=== PATIENT | female | born 1930 | race Caucasian/White ===

== ENCOUNTER 2016-06-24 15:24 | Outpatient (CLI) | payer MEDICARE, OTHER | END 2016-06-24 15:25 | disposition home or self-care (01) | DX: R05 Cough (principal) ==

== ENCOUNTER 2016-07-30 15:03 | Outpatient (CLI) | payer MEDICARE, OTHER | END 2016-07-30 15:04 | disposition home or self-care (01) | DX: R05 Cough (principal) ==

== ENCOUNTER 2016-12-10 16:16 | Outpatient (CLI) | payer MEDICARE, OTHER ==
[2016-12-10 18:27] LABS: BASOPHILS # (AUTO) 0.1 10^3/uL (0.0-0.1); BASOPHILS % (AUTO) 0.7 %; EOSINOPHILS # (AUTO) 0.3 10^3/uL (0.0-0.7); EOSINOPHILS % (AUTO) 4.1 %; HCT - HEMATOCRIT 46.1 % (37.0-47.0); HGB - HEMOGLOBIN 15.4 g/dL (12.0-16.0); LYMPHOCYTES # (AUTO) 2.2 10^3/uL (1.5-3.5); MEAN CORPUSCULAR HEMOGLOBIN 33.1 pg (27.0-31.0); MEAN CORPUSCULAR HGB CONC 33.5 g/dL (32.0-36.0); MEAN CORPUSCULAR VOLUME 98.9 fL (81.0-99.0); MEAN PLATELET VOLUME 10.7 fL (7.9-10.8); MONOCYTES # (AUTO) 0.7 10^3/uL (0.0-1.0); MONOCYTES % (AUTO) 8.8 %; NEUTROPHILS # (AUTO) 4.9 10^3/uL (1.5-6.6); NEUTROPHILS % (AUTO) 59.4 %; RED BLOOD COUNT 4.67 10^6/uL (4.20-5.40); RED CELL DISTRIBUTION WIDTH 13.6 % (12.0-15.0); UNCORRECTED WHITE BLOOD COUNT 8.2 x10^3/uL; WHITE BLOOD COUNT 8.2 x10^3/uL (4.8-10.8)
[2016-12-10 18:30] LABS: BILIRUBIN,URINE NEGATIVE (NEGATIVE)
[2016-12-10 18:31] LABS: ALBUMIN/GLOBULIN RATIO 1.1 (1.0-2.2); BILIRUBIN,TOTAL 0.5 mg/dL (0.2-1.0); CALCIUM 10.2 mg/dL (8.5-10.3); POTASSIUM 4.4 mmol/L (3.5-5.0); TOTAL PROTEIN 7.2 g/dL (6.7-8.2); UA w/ MICROSCOPIC CHARGE YES
[2016-12-10 18:39] LABS: UR CULTURE IF IND INDICATED; WBC,URINE 0-3 /HPF (0-5)
== END 2016-12-10 16:17 ==
LOC: LAB.R 16:16
PROVIDERS: ATTEND Physician Assistant Medical
DX: I48.2 Chronic atrial fibrillation (principal); R32 Unspecified urinary incontinence; R06.00 Dyspnea, unspecified
CPT/HCPCS: 80053; 81001; 81003; 83880; 85025; 87077; 87086

== ENCOUNTER 2016-12-10 16:42 | Outpatient (CLI) | payer MEDICARE, OTHER ==
--- NOTE | 2016-12-11 12:11 | XRAY Report ---
TWO-VIEW CHEST: 12/10/2016 CLINICAL INDICATION: Dyspnea. COMPARISON: 07/30/2016 FINDINGS: Frontal and lateral views of the chest demonstrate a normal cardiac silhouette. The lungs are hyperinflated. No new infiltrate, effusion, or pneumothorax is evident. IMPRESSION: HYPERINFLATION, COMPATIBLE WITH COPD. NO EVIDENCE OF ACUTE CARDIOPULMONARY DISEASE. JOB #: [id number] EXT JOB #:[id number]
== END 2016-12-10 16:43 | disposition home or self-care (01) ==
LOC: DI 16:42
PROVIDERS: ATTEND Physician Assistant Medical
DX: R06.00 Dyspnea, unspecified (principal); R32 Unspecified urinary incontinence; I48.2 Chronic atrial fibrillation
CPT/HCPCS: 71020; 80053; 81001; 81003; 83880; 85025; 87077; 87086

== ENCOUNTER 2016-12-29 13:45 | Outpatient (CLI) | payer MEDICARE, OTHER | END 2016-12-29 13:46 | disposition critical access hospital (66) | LOC: EMS 13:45 | PROVIDERS: ATTEND Surgery | DX: M25.552 Pain in left hip (principal); W18.30XA Fall on same level, unspecified, initial encounter; Y92.000 Kitchen of unspecified non-institutional (private) residence as the place of occurrence of the external cause | CPT/HCPCS: A0425; A0427 ==

== ENCOUNTER 2016-12-29 14:26 | Observation (INO) | payer MEDICARE, OTHER ==
[2016-12-29] MEDS ORDERED: SODIUM CHLORIDE 0.9% 1,000 ML IV ONE (14:39)
[2016-12-29 14:49] LABS: BASOPHILS # (AUTO) 0.1 10^3/uL (0.0-0.1); BASOPHILS % (AUTO) 1.2 %; EOSINOPHILS # (AUTO) 0.2 10^3/uL (0.0-0.7); HCT - HEMATOCRIT 48.3 % (37.0-47.0); HGB - HEMOGLOBIN 16.2 g/dL (12.0-16.0); LYMPHOCYTES # (AUTO) 2.2 10^3/uL (1.5-3.5); LYMPHOCYTES % (AUTO) 21.5 %; MEAN CORPUSCULAR HEMOGLOBIN 32.6 pg (27.0-31.0); MEAN CORPUSCULAR HGB CONC 33.5 g/dL (32.0-36.0); MEAN CORPUSCULAR VOLUME 97.3 fL (81.0-99.0); MEAN PLATELET VOLUME 9.4 fL (7.9-10.8); MONOCYTES # (AUTO) 0.6 10^3/uL (0.0-1.0); MONOCYTES % (AUTO) 5.6 %; NEUTROPHILS % (AUTO) 69.7 %; NUCLEATED RED BLOOD CELLS AUTO 0.1 /100WBC; RED BLOOD COUNT 4.96 10^6/uL (4.20-5.40); RED CELL DISTRIBUTION WIDTH 13.3 % (12.0-15.0)
[2016-12-29 15:05] LABS: CALCIUM 10.5 mg/dL (8.5-10.3); CREATININE 1.1 mg/dL (0.4-1.0); POTASSIUM 4.7 mmol/L (3.5-5.0)
[2016-12-29 15:07] LABS: INR 2.5 (0.8-1.2); PT - PROTHROMBIN TIME 28.5 secs (9.9-12.6)
--- NOTE | 2016-12-29 15:27 | CT Preliminary Report ---
Exam: CT Cervical Spine W/O IMPRESSION: 1. No evidence for acute fracture. Mild motion artifact limited. 2. Moderate to severe degenerative changes as above. [facility] SITE ID: [id number]
--- NOTE | 2016-12-29 15:34 | CT Preliminary Report ---
Exam: CT Head W/O IMPRESSION: Generalized age-related cortical atrophic changes without evidence of acute intracranial abnormality. [facility] SITE ID: [id number]
--- NOTE | 2016-12-29 15:36 | CT Report ---
EXAM: CT HEAD EXAM DATE: 12/29/2016 02:58 PM. CLINICAL HISTORY: Fall hit head. COMPARISON: Head CT 03/21/2016. TECHNIQUE: Multiaxial CT images were obtained from the foramen magnum to the vertex. IV contrast: Non e. Reformats: Coronal. In accordance with CT protocol optimization, one or more of the following dose reduction techniques w ere utilized for this exam: automated exposure control, adjustment of mA and/or KV based on patient s ize, or use of iterative reconstructive technique. FINDINGS: Parenchyma: No intraparenchymal hemorrhage. No evidence of mass, midline shift, or CT findings of acu te infarction. Garcia-white differentiation is distinct. Extraaxial Spaces: Normal for age. No subdural or epidural collections identified. Ventricles: The ventricles and cortical sulci are enlarged, consistent with age-related tissue loss. Sinuses: Imaged paranasal sinuses, orbits, and mastoids show no significant abnormality. Bones: No evidence of fracture or calvarial defect. Other: Diffuse chronic microangiopathic white matter changes are evident. IMPRESSION: Generalized age-related cortical atrophic changes without evidence of acute intracranial abnormality. [facility] Referring Provider Line: [phone] SITE ID: [id number]
--- NOTE | 2016-12-29 15:36 | CT Report ---
EXAM: CT CERVICAL SPINE WITHOUT CONTRAST DATE: 12/29/2016 02:56 PM HISTORY: Fall hit head. COMPARISONS: None. TECHNIQUE: Thin-section axial images were acquired of the cervical spine without contrast. Post-proce ssing: Coronal and sagittal reformats. Other: None. In accordance with CT protocol optimization, one or more of the following dose reduction techniques w ere utilized for this exam: automated exposure control, adjustment of mA and/or KV based on patient s ize, or use of iterative reconstructive technique. FINDINGS: Bones: Mild motion artifact limits the exam. No acute fracture is seen. Severe degenerative disk disease from C4-C7. Moderate C7-T1 and C3-C4 degenerative disk disease. Mini mal anterolisthesis of C2-C3, C3-C4 and C7-T1, most likely degenerative. Moderate to severe facet art hropathy, more severe at the upper and mid levels and on the left side. Breathing motion artifact. No acute findings seen in the lung apices. Marked atherosclerotic calcific ation of the thoracic aorta. No acute soft tissue findings seen small right thyroid hypodense nodule or cyst measuring 6 mm. Adjacent to this is a thickly calcified thyroid cyst or nodule measuring 7 mm . IMPRESSION: 1. No evidence for acute fracture. Mild motion artifact limited. 2. Moderate to severe degenerative changes as above. [facility] Referring Provider Line: [phone] SITE ID: [id number]
--- NOTE | 2016-12-29 15:38 | XRAY Preliminary Report ---
Exam: XR Pelvis 1 View IMPRESSION: 1. No evidence for acute fracture. 2. Mild bilateral hip degenerative joint disease. Moderate pubic symphysis sclerosis again noted, wit h erosive changes, could represent osteitis pubis. [facility] SITE ID: [id number]
--- NOTE | 2016-12-29 15:41 | XRAY Report ---
EXAM: PELVIS RADIOGRAPHY EXAM DATE: 12/29/2016 03:07 PM. CLINICAL HISTORY: Fall left hip pain. COMPARISON: Pelvis 03/07/2010. TECHNIQUE: 1 view. FINDINGS: Bones: No evidence for acute fracture. Joints: No dislocation. Bilateral hip degenerative joint disease. Moderate bilateral sacroiliac degen erative change with sclerosis again noted. Moderate pubic symphysis sclerosis again noted, with erosi ve changes, could represent osteitis pubis. Soft Tissues: Large body habitus. Left iliac artery calcification. IMPRESSION: 1. No evidence for acute fracture. 2. Mild bilateral hip degenerative joint disease. Moderate pubic symphysis sclerosis again noted, wit h erosive changes, could represent osteitis pubis. [facility] Referring Provider Line: [phone] SITE ID: [id number]
[2016-12-29] MEDS ORDERED: ACETAMINOPHEN 325 MG TABLET PO ONE (17:10)
--- NOTE | 2016-12-29 17:11 | ED Physician Documentation ---
History of Present Illness - Stated complaint Stated Complaint: GLF - Chief complaint Chief Complaint: Trauma Hd/Nk - Additonal information Additional information: hx from EMS and pt 86 y/o f on xarelto for a fib was gone for 2-3 hr came home to find pt supine on floor pt does not recall what happened - does not know if tripped and fell or had syncope has a MATA and hematoma to posterior scalp mild left neck pain no numbness or weakness no CP no AP L hip pain but that is chronic no fever cough NVD recently txed for UTI Review of Systems Constitutional: denies: Fever, Chills Ears: denies: Drainage/discharge Nose: denies: Epistaxis Cardiac: denies: Chest pain / pressure Respiratory: denies: Dyspnea, Cough GI: denies: Abdominal Pain, Nausea, Vomiting, Diarrhea : denies: Dysuria Skin: denies: Laceration (s) Musculoskeletal: reports: Neck pain Neurologic: reports: Syncope (not known for sure - pt does not recal event), Headache, Head injury Endocrine: reports: Easy bruising / bleeding Immunocompromised: denies: Immunocompromised PD PAST MEDICAL HISTORY - Past Medical History Past Medical History: Yes Cardiovascular: Hypertension, High cholesterol, Coronary artery disease, [place] Psych: Depression - Past Surgical History Past Surgical History: Yes Ortho: Knee replacement Cardiovascular: Coronary stent - Present Medications Home Medications: Ambulatory Orders Medication Instructions Recorded Confirmed Aspirin [Ecotrin] 81 mg PO DAILY 03/21/14 12/29/16 Atorvastatin [Lipitor] 40 mg PO QPM 03/21/14 12/29/16 Cholecalciferol (Vitamin D3) 2,000 units PO DAILY 03/21/14 12/29/16 [Vitamin D] Levothyroxine Sodium [Levoxyl] 100 mcg PO DAILY 03/21/14 12/29/16 Losartan [Cozaar] 50 mg PO BID 03/21/14 12/29/16 Potassium Chloride 20 meq PO DAILY 03/21/14 12/29/16 Citalopram [CeleXA] 20 mg PO DAILY 03/21/16 12/29/16 Rivaroxaban [Xarelto] 20 mg PO DAILY 03/21/16 12/29/16 Spironolactone 25 mg PO DAILY 12/29/16 12/29/16 - Allergies Allergies/Adverse Reactions: Allergies Allergy/AdvReac Type Severity Reaction Status Date / Time nortriptyline [Nortriptyline] Allergy Unknown Verified 12/29/16 14:58 sertraline HCl * Allergy Cramps Verified 12/29/16 14:58 [From Zoloft] tolterodine tartrate * Allergy Dizziness Verified 12/29/16 14:58 [From Detrol] - Social History Does the pt smoke?: No Smoking Status: Never smoker Does the pt drink ETOH?: No Does the pt have substance abuse?: No PD ED PE NORMAL - Vitals Vital signs reviewed: Yes - General General: Alert and oriented X 3 - HEENT HEENT: PERRL. No: Atraumatic (hematoma posterior left scalp) - Neck Neck: No bony TTP (but given mechanism and age will image) - Cardiac Cardiac: RRR - Respiratory Respiratory: No respiratory distress, Clear bilaterally - Abdomen Abdomen: Soft, Non tender - Derm Derm: Normal color - Extremities Extremities: Other (no deformity, able to rangle, mild TTP lateral L hip) - Neuro Neuro: Alert and oriented X 3, No motor deficit, No sensory deficit, Normal speech Results - Vitals Vitals: Vital Signs - 24 hr 12/29/16 14:26 Temperature 36.8 C Heart Rate 98 Respiratory 20 Rate Blood Pressure 174/118 H O2 Saturation 100 Oxygen O2 Source Room air - EKG (time done) 1514 Rate: Rate (enter#) (69) Rhythm: Atrial fibrillation [place]: Normal Ischemia: Normal ST segments - Labs Labs: Laboratory Tests 12/29/16 12/29/16 12/29/16 14:39 14:39 14:39 WBC 10.0 RBC 4.96 Hgb 16.2 H Hct 48.3 H MCV 97.3 MCH 32.6 H MCHC 33.5 RDW 13.3 Plt Count 233 MPV 9.4 Neut # 7.0 H Lymph # 2.2 [place] # 0.6 Eos # 0.2 Baso # 0.1 Absolute Nucleated RBC 0.01 Nucleated RBCs 0.1 PT 28.5 H INR 2.5 H Sodium 136 Potassium 4.7 Chloride 101 Carbon Dioxide 27 Anion Gap 8.0 BUN 20 Creatinine 1.1 H Estimated GFR (MDRD) 47 L Glucose 107 H Calcium 10.5 H Total Creatine Kinase 33 Troponin I Urine Color Urine Clarity Urine pH Ur Specific [place] Urine Protein Urine Glucose (UA) Urine Ketones Urine Occult Blood Urine Nitrite Urine Bilirubin Urine Urobilinogen Ur Leukocyte Esterase Urine RBC Urine WBC Ur Squamous Epith Cells Urine Bacteria Urine Mucus Ur Microscopic Review Urine Culture Comments 12/29/16 12/29/16 14:39 17:50 WBC RBC Hgb Hct MCV MCH MCHC RDW Plt Count MPV Neut # Lymph # [place] # Eos # Baso # Absolute Nucleated RBC Nucleated RBCs PT INR Sodium Potassium Chloride Carbon Dioxide Anion Gap BUN Creatinine Estimated GFR (MDRD) Glucose Calcium Total Creatine Kinase Troponin I < 0.04 Urine Color YELLOW Urine Clarity HAZY Urine pH 7.0 Ur Specific [place] 1.020 Urine Protein NEGATIVE Urine Glucose (UA) NEGATIVE Urine Ketones NEGATIVE Urine Occult Blood TRACE-INTA Urine Nitrite POSITIVE H Urine Bilirubin NEGATIVE Urine Urobilinogen 0.2 (NORMAL) Ur Leukocyte Esterase NEGATIVE Urine RBC 0-5 Urine WBC 0-3 Ur Squamous Epith Cells MANY Squamous H Urine Bacteria Many H Urine Mucus Few Strands Ur Microscopic Review INDICATED Urine Culture Comments NOT INDICATED - Rads (name of study) CTH Radiology: EMP read contemporaneously (no acute fx or bleed) CTCS Radiology: See rad report (no acute fx) pelvis Radiology: See rad report (no acute) PD MEDICAL DECISION MAKING - ED course ED course: fall with LOC of uncertain etiology and duration in an elderly pt on xarelto thankfully no major injuries since not sure if pt had syncope seems prudent to observe her on tele and perhaps consider echo, also as pt is on xarelto would be reasonable to do neuro checks overnight though initial CT is reassuring BP came down some s intervention Departure - Departure Disposition: ED Place in Observation Clinical Impression: Fall Qualifiers: Encounter type: initial encounter Qualified Code(s): W19.XXXA - Unspecified fall, initial encounter Head injury Qualifiers: Encounter type: initial encounter Qualified Code(s): S09.90XA - Unspecified injury of head, initial encounter Syncope Qualifiers: Syncope type: unspecified Qualified Code(s): R55 - Syncope and collapse
[2016-12-29] MEDS ORDERED: ACETAMINOPHEN 325 MG TABLET PO STA (17:17)
[2016-12-29 18:16] LABS: BILIRUBIN,URINE NEGATIVE (NEGATIVE)
[2016-12-29 18:20] LABS: UA w/ MICROSCOPIC CHARGE YES
[2016-12-29 18:32] LABS: UR CULTURE IF IND NOT INDICATED; WBC,URINE 0-3 /HPF (0-5)
[2016-12-29] MEDS ORDERED: ONDANSETRON 4 MG/2 ML VIAL IVP PRN (18:34)
[2016-12-29] MEDS ORDERED: SODIUM CHLORIDE FLUSH 0.9% 10 ML SYRINGE IVP PRN (18:34)
[2016-12-29] MEDS ORDERED: hydrALAZINE INJ 20 MG/ML VIAL IVP PRN (18:47)
[2016-12-29] MEDS: LOSARTAN 50 MG TABLET PO SCH (20:25)
[2016-12-29] MEDS ORDERED: ATORVASTATIN 40 MG TABLET PO SCH (21:00)
[2016-12-29] MEDS: ACETAMINOPHEN 325 MG TABLET PO PRN (21:51)
--- NOTE | 2016-12-29 21:51 | PROVIDER PROGRESS NOTE ---
Manager Bilingual Note - Manager Bilingual Note Manager Bilingual Note: I was called by ER provider about possible UTI in this patient however patient has no leukocytosis, no fever, UA has many squamous cells and 0-3 WBC therefore bacteria is likely contaminant. For now I will not start antibiotics and would wait to see results of the urine culture and defer any antibiotic treatment to the daytime hospitalist.
[2016-12-29] MEDS: SODIUM CHLORIDE FLUSH 0.9% 10 ML SYRINGE IVP SCH (21:52)
[2016-12-30] MEDS: SODIUM CHLORIDE FLUSH 0.9% 10 ML SYRINGE IVP SCH (06:20)
[2016-12-30] MEDS ORDERED: LEVOTHYROXINE 100 MCG TABLET PO SCH (07:00)
[2016-12-30 08:13] LABS: BASOPHILS # (AUTO) 0.1 10^3/uL (0.0-0.1); BASOPHILS % (AUTO) 0.6 %; EOSINOPHILS # (AUTO) 0.2 10^3/uL (0.0-0.7); EOSINOPHILS % (AUTO) 2.7 %; HCT - HEMATOCRIT 43.4 % (37.0-47.0); HGB - HEMOGLOBIN 14.7 g/dL (12.0-16.0); LYMPHOCYTES # (AUTO) 2.2 10^3/uL (1.5-3.5); LYMPHOCYTES % (AUTO) 23.7 %; MEAN CORPUSCULAR HEMOGLOBIN 32.6 pg (27.0-31.0); MEAN CORPUSCULAR HGB CONC 33.9 g/dL (32.0-36.0); MEAN CORPUSCULAR VOLUME 96.3 fL (81.0-99.0); MEAN PLATELET VOLUME 9.3 fL (7.9-10.8); MONOCYTES # (AUTO) 0.7 10^3/uL (0.0-1.0); MONOCYTES % (AUTO) 7.5 %; NEUTROPHILS % (AUTO) 65.5 %; NUCLEATED RED BLOOD CELLS AUTO 0.1 /100WBC; RED BLOOD COUNT 4.51 10^6/uL (4.20-5.40); RED CELL DISTRIBUTION WIDTH 12.9 % (12.0-15.0); UNCORRECTED WHITE BLOOD COUNT 9.1 x10^3/uL; WHITE BLOOD COUNT 9.1 x10^3/uL (4.8-10.8)
[2016-12-30 08:23] LABS: CALCIUM 10.1 mg/dL (8.5-10.3); TOTAL PROTEIN 6.5 g/dL (6.7-8.2)
[2016-12-30] MEDS ORDERED: FAMOTIDINE 20 MG TABLET PO SCH (09:00)
[2016-12-30] MEDS ORDERED: ASPIRIN EC 81 MG TABLET PO SCH (09:00)
[2016-12-30] MEDS ORDERED: POLYETHYLENE GLYCOL 3350 17 GM PACKET PO SCH (09:00)
[2016-12-30] MEDS ORDERED: SPIRONOLACTONE 25 MG TABLET PO SCH (09:00)
[2016-12-30] MEDS ORDERED: RIVAROXABAN 10 MG TABLET PO SCH (09:00)
[2016-12-30] MEDS ORDERED: CHOLECALCIFEROL 1,000 UNIT TABLET PO SCH (09:00)
[2016-12-30] MEDS: LOSARTAN 50 MG TABLET PO SCH (09:06)
--- NOTE | 2016-12-30 12:18 | HISTORY & PHYSICAL EXAMINATION ---
Chief Complaint - Chief Complaint Chief Complaint: syncope History of Present Illness - Admitted From Admitted From:: emergence department - History Obtained From History obtained from: patient - History of Present Illness HPI Comment/Other: This is 86-year-old Cauc[place] female with Past Medical History of hypertension, hyperlipidemia, coronary artery disease, [place], Afib with Xarelto, Depression, who present emergence department for evaluation of one episode of syncope. Patient report yesterday when she prepared her breakfast in the ketch, she fell at the ketch room floor when she tried to stand up. She did not bring her lifeline with her. so she stayed at the ketch floor at least couple of hours, because she can not move, and she can not call her . When her came back and found her in the floor, then immediately called 911. EMS sent patient to emergence department for further evaluation. She report she did not loss of her conscious when she had fall. Patient report she had headache after fall. But she feels much better for headache after she was given Tylenol at emergence department. Patient denies other pain or injury after fall. Patient denies chest pain, short of air, fever, chill, abdominal pain, nausea, vomiting, diarrhea, vision changing, urinary issue, black stool or GI bleeding, focal neurological deficits CT of head, cervical spine, Xray of pelvis reveals no acute finding. lab test is unremarkable. UA reveals many squamous cells, and patient denies any urinary symptoms. Patient is admitted for observation, further evaluation of syncope and neurological observation after patient had fall and with Xarelto medication taken at home. Review of Systems - Constitutional Constitutional: denies: Fatigue, Fever, Chills, Malaise, Weakness, Poor appetite , Diaphoresis, Night sweats, Weight gain, Weight loss - Eyes Eyes: denies: Pain, Irritation, Amaurosis, Blurred vision, Spots in vision, Field loss, Vision loss, Dipolpia - Ears, Nose & Throat Ears, Nose & Throat: denies: Ear pain, Hearing loss, Hearing aids, Tinnitus, Vertigo, Nosebleeds, Nasal congestion, Postnasal drainage, Sore throat, Hoarseness, Mouth lesions, Bleeding gums - Cardiovascular Cariovascular: reports: Syncope. denies: Irregular heart rate, Palpitations, Chest pain, Edema, Lightheadedness, Exertional dyspnea, Decr. exercise tolerance , Orthopnea - Respiratory Respiratory: denies: Cough, Sputum production, Wheezing, Snoring, Hemoptysis, Orthopnea, SOB at rest, SOB with exertion, Apnea, Stridor, Pleuritic pain - Gastrointestinal Gastrointestinal: denies: Abdominal pain, Abdominal distention, Constipation, Diarrhea, Change in bowel habits, Rectal bleeding, Black stools, Bloody stools, Nausea, Vomiting, Bile emesis, Coffee grounds emesis, Reflux/heartburn, Bloating , Poor appetite - Genitourinary Genitourinary: denies: Dysuria, Frequency, Urgency, Hematuria, Incontinence, Flank pain - Musculoskeletal Musculoskeletal: denies: Muscle pain, Back pain, Muscle aches, Stiffness, Limited range of motion, Muscle weakness, Gout, Joint pain, Joint swelling - Integumentary Integumentary: denies: Rash, Lesions, Lumps, Pigment changes - Neurological Neurological: denies: General weakness, Focal weakness, Headache, Dizziness, Numbness, Memory problems, Abnormal gait, Seizures, Incoordination, Slurred speech - Psychiatric Psychiatric: denies: Depression, Anxiety, Suicidal, Delusions, Hallucinations, Homicidal - Endocrine Endocrine: denies: Polyuria, Polydypsia, Polyphagia - Hematologic/Lymphatic Hematologic/Lymphatic: denies: Bruising, Petechiae, Blood clots, Lymphadenopathy , Recurrent infections History - Past Medical History Cardiovascular: reports: Hypertension, High cholesterol, Coronary artery disease , [place] Psych: reports: Depression MRSA Hx?: No - Past Surgical History Ortho: reports: Knee replacement Cardiovascular: reports: Coronary stent Meds/Allgy - Home Medications Home Medications: Ambulatory Orders Medication Instructions Recorded Confirmed Aspirin [Ecotrin] 81 mg PO DAILY 03/21/14 12/29/16 Atorvastatin [Lipitor] 40 mg PO QPM 03/21/14 12/29/16 Cholecalciferol (Vitamin D3) 2,000 units PO DAILY 03/21/14 12/29/16 [Vitamin D3] Levothyroxine Sodium [Levoxyl] 100 mcg PO DAILY 03/21/14 12/29/16 Losartan [Cozaar] 50 mg PO BID 03/21/14 12/29/16 Potassium Chloride 20 meq PO DAILY 03/21/14 12/29/16 Citalopram [CeleXA] 20 mg PO DAILY 03/21/16 12/29/16 Rivaroxaban [Xarelto] 20 mg PO DAILY 03/21/16 12/29/16 Spironolactone 25 mg PO DAILY 12/29/16 12/29/16 - Allergies Allergies/Adverse Reactions: Allergies Allergy/AdvReac Type Severity Reaction Status Date / Time nortriptyline [Nortriptyline] Allergy Unknown Verified 12/29/16 14:58 sertraline HCl * Allergy Cramps Verified 12/29/16 14:58 [From Zoloft] tolterodine tartrate * Allergy Dizziness Verified 12/29/16 14:58 [From Detrol] Exam - Vital Signs Vital Signs: Vital Signs x48h Temp Pulse Resp BP Pulse Ox 12/30/16 08:00 153/89 H 12/30/16 07:56 36.7 C 66 18 170/86 H 95 12/30/16 06:07 61 163/69 H 12/30/16 05:38 36.8 C 63 18 172/89 H 95 - Physical Exam General Appearance: positive: No acute distress, Alert Eyes Bilateral: positive: Normal inspection, PERRL, EOMI. negative: No lid inflammation ENT: positive: ENT inspection nml, Pharynx nml, No signs of dehydration. negative: Purulent nasal drainage, Pharyngeal erythema Neck: positive: Nml inspection, Thyroid nml, Trachea midline. negative: Lymphadenopathy (R), Lymphadenopathy (L), Stiff neck, Swelling/bruising Respiratory: positive: Chest non-tender, No respiratory distress, Breath sounds nml. negative: Wheezes, Rales, Rhonchi Cardiovascular: positive: Regular rate & rhythm, No murmur, No gallop. negative : Tachycardia, Bradycardia, Systolic murmur, Diastolic murmur Peripheral Pulses: positive: 2+ Abdomen: positive: Non-tender, Nml bowel sounds, No distention. negative: Tenderness, Guarding, Rebound Back: positive: Nml inspection. negative: CVA tenderness (R), CVA tenderness (L ) Skin: positive: Color nml, Warm, Dry. negative: Diaphoresis, Pallor, Decubitus Extremities: positive: Non-tender, Full ROM, Nml appearance, No pedal edema. negative: Pedal edema, Calf tenderness Neurologic/Psychiatric: positive: Oriented x3, CN's nml (2-12), Motor nml, Sensation nml, Mood/affect nml. negative: Disoriented to person, Disoriented to place, Disoriented to time, Weakness, Sensory loss, Facial droop, Slurred/ abnml speech, Depressed mood/affect Conclusion/Plan - Problem List (1) Syncope Conclusion/Plan: order ECHO and orthostatic BP assessment on tele monitor, EKG PRN check CPK for fall from syncope Qualifiers: Syncope type: unspecified Qualified Code(s): R55 - Syncope and collapse (2) Atrial fibrillation Conclusion/Plan: pt appears with permanent afit with Xarelto. PT/INR 2.5 in the therapeutic arrange. stable, with reconciliation of home meds Qualifiers: Atrial fibrillation type: chronic Qualified Code(s): I48.2 - Chronic atrial fibrillation (3) Fall Conclusion/Plan: CT of head and cervical spine, Xray of pelvis, reveals acute findings. Pt did not have other complaint, or pain, or injury. Closely neurological check, because pt had fall and take Xarelto. Qualifiers: Encounter type: initial encounter Qualified Code(s): W19.XXXA - Unspecified fall, initial encounter (4) Hypertension Conclusion/Plan: reconciliation of home BP medications, add hydralazine PRN, closely monitor (5) Hyperlipemia Conclusion/Plan: reconciliation of Lipitor, home meds. - Lab Results Fish Bones: 12/30/16 08:05 12/30/16 08:05 Issues/Core Measures - Anticipated LOS Anticipated Stay Length: Less than 2 midnights - Issues Hospital Issues and Management Plan: Since pt had Xarelto with INR 2.5, so DVT prophylaxis, only add SCD - DVT/VTE - Prophylaxis VTE/DVT Device ordered at admit?: Yes
--- NOTE | 2016-12-30 12:52 | Discharge Plan ---
Discharge Plan Disposition: 01 Home, Self Care Condition: Stable Diet: Cardiac Activity Restrictions: Activity as Tolerated Shower Restrictions: No Weight Bearing: Full Weight Additional Instructions or Follow Up instructions: May see PCP and Sports Medicine Trainer in one week. Follow-Up Care: [facility] - Cardiac No Smoking: If you smoke, Please STOP! Call for help.
[2016-12-30 13:05] VITALS: BP 169/78
[2016-12-30] MEDS: ACETAMINOPHEN 325 MG TABLET PO PRN (14:20)
--- NOTE | 2017-01-01 07:36 | DISCHARGE SUMMARY ---
DATE OF ADMISSION: 12/29/2016 DATE OF DISCHARGE: 12/30/2016 DISCHARGE DIAGNOSES 1. Syncope. 2. Atrial fibrillation. 3. Hypertension. 4. Hypothyroidism. CHIEF COMPLAINT: Syncope without loss of consciousness. HOSPITAL COURSE: The patient reports when she went to the kitchen to prepare breakfast, she fell to the ground but did not have loss of consciousness. She could not reach the telephone and she stayed on the kitchen floor for at least 2 hours. When her came back, he found her on the floor and called 911. In the emergency room, the patient had CT of the head and neck. There was no fracture and no injury. The patient also reported some headache, but after Tylenol the headache is reduced. No other injury. CT of the head showed no fracture and no intracranial deformity. The patient was admitted for evaluation. The patient did an echo and orthostatic blood pressure management. The echo showed the patient basically had normal left ventricular function and EF was in the normal range. It did show atrial fibrillation. Orthostatics had 20 blood pressure difference from standing and sitting. It was explained to the patient the role of orthostatics could be cause of the fainting and fall, and advised the patient to stand slowly. The patient reports she laid on the floor for at least 2 hours. Consulted social work and they found out the patient forgot to bring her Lifeline with her. She has a Lifeline and she has a phone, but she did not bring them with her. Advised the patient to bring the Lifeline and telephone at any time with her. The patient was admitted December 29 and discharged the next day on December 30. Patient did have image study with echo and it showed left ventricle in normal range of function. EKG showed no obvious acute findings with dysrhythmia, but the patient still had atrial fibrillation. physical examination: General Appearance: positive: No acute distress, Alert Eyes Bilateral: positive: Normal inspection, PERRL, EOMI. negative: No lid inflammation ENT: positive: ENT inspection nml, Pharynx nml, No signs of dehydration. negative: Purulent nasal drainage, Pharyngeal erythema Neck: positive: Nml inspection, Thyroid nml, Trachea midline. negative: Lymphadenopathy (R), Lymphadenopathy (L), Stiff neck, Swelling/bruising Respiratory: positive: Chest non-tender, No respiratory distress, Breath sounds nml. negative: Wheezes, Rales, Rhonchi Cardiovascular: positive: Regular rate & rhythm, No murmur, No gallop. negative : Tachycardia, Bradycardia, Systolic murmur, Diastolic murmur Peripheral Pulses: positive: 2+ Abdomen: positive: Non-tender, Nml bowel sounds, No distention. negative: Tenderness, Guarding, Rebound Back: positive: Nml inspection. negative: CVA tenderness (R), CVA tenderness (L ) Skin: positive: Color nml, Warm, Dry. negative: Diaphoresis, Pallor, Decubitus Extremities: positive: Non-tender, Full ROM, Nml appearance, No pedal edema. negative: Pedal edema, Calf tenderness Neurologic/Psychiatric: positive: Oriented x3, CN's nml (2-12), Motor nml, Sensation nml, Mood/affect nml. negative: Disoriented to person, Disoriented to place, Disoriented to time, Weakness, Sensory loss, Facial droop, Slurred/ abnml speech, Depressed mood/affect DISCHARGE MEDICATIONS: No change. The patient is on: 1. Xarelto 20 mg p.o. daily for atrial fibrillation. 2. Spironolactone 25 mg p.o. daily. 3. Potassium 20 mEq daily. 4. Losartan 50 mg p.o. b.i.d. 5. Levothyroxine 100 mcg p.o. daily. 6. Celexa 20 mg p.o. daily. 7. Vitamin D3, 2000 units p.o. daily. 8. Lipitor 40 mg p.o. q.p.m. 9. Aspirin 81 mg p.o. daily. DISCHARGE INSTRUCTIONS: Advised the patient to see PCP and electro mechanical technologist within 1 week. Advised the patient to wear [employer] all the time. Discharge time was about 40 minutes. JOB #: [id number] EXT JOB #:[id number] [facility]
== END 2016-12-30 15:25 | disposition home or self-care (01) ==
LOC: EDUNIT# → ED 14:26 → OBS 18:34
PROVIDERS: ADMIT Nurse Practitioner Gerontology; ATTEND Nurse Practitioner Gerontology
DX: R55 Syncope and collapse (principal); I48.91 Unspecified atrial fibrillation; E03.9 Hypothyroidism, unspecified; I25.10 Atherosclerotic heart disease of native coronary artery without angina pectoris; I10 Essential (primary) hypertension; E78.5 Hyperlipidemia, unspecified; F32.9 Major depressive disorder, single episode, unspecified; I25.2 Old myocardial infarction; Z95.5 Presence of coronary angioplasty implant and graft; Z96.659 Presence of unspecified artificial knee joint; Z79.82 Long term (current) use of aspirin; Z79.02 Long term (current) use of antithrombotics/antiplatelets; Z91.81 History of falling
CPT/HCPCS: 36415; 70450; 72125; 72170; 80048; 80053; 81001; 82550; 84484; 85025; 85610; 93005; 93306; 96360; 99284; 99285; A9270; G0378; 81003; 87086

== ENCOUNTER 2017-05-09 13:23 | Outpatient (CLI) | payer MEDICARE, OTHER | END 2017-05-09 13:24 | disposition EMS.NT | LOC: EMS 13:23 | PROVIDERS: ATTEND Surgery | DX: T14.90XA Injury, unspecified, initial encounter (principal); W01.0XXA Fall on same level from slipping, tripping and stumbling without subsequent striking against object, initial encounter; Y92.009 Unspecified place in unspecified non-institutional (private) residence as the place of occurrence of the external cause ==

== ENCOUNTER 2017-05-10 11:44 | Emergency (ER) | payer MEDICARE, OTHER ==
--- NOTE | 2017-05-10 12:37 | XRAY Preliminary Report ---
Exam: XR CHEST 2 VIEW PA/LAT IMPRESSION: 1. Cardiomegaly. No vascular congestion. 2. Bronchial thickening which can be seen with bronchitis or reactive airways disease. No focal conso lidation. [facility] SITE ID: [id number]
--- NOTE | 2017-05-10 12:39 | XRAY Report ---
EXAM: CHEST RADIOGRAPHY EXAM DATE: 05/10/2017 12:26 PM. CLINICAL HISTORY: Congestion/cough. COMPARISON: 12/10/2016. 07/30/2016. TECHNIQUE: 2 views. FINDINGS: Lungs/Pleura: Mild bronchial thickening. Interstitium is prominent. Linear scarring in the left lung base. No vascular congestion or pneumothorax. Mediastinum: Cardiomegaly. Aortic tortuosity. Aortic atherosclerosis. Other: Degenerative changes of the thoracic spine. Surgical clips in the left axilla are again seen. IMPRESSION: 1. Cardiomegaly. No vascular congestion. 2. Bronchial thickening which can be seen with bronchitis or reactive airways disease. No focal conso lidation. [facility] Referring Provider Line: [phone] SITE ID: [id number]
[2017-05-10] MEDS ORDERED: IPRATROPIUM/ALBUTEROL 3 ML NEB INH STA (14:05)
[2017-05-10] MEDS ORDERED: IPRATROPIUM/ALBUTEROL 3 ML NEB INH ONE (14:17)
--- NOTE | 2017-05-10 14:39 | ED Physician Documentation ---
History of Present Illness - Stated complaint Stated Complaint: COUGH/CONGESTION - Chief complaint Chief Complaint: Resp - History obtained from History obtained from: Patient (pt is here for a cough and congestion and wheezing for the past couple days, no fevers, some shortness of breath, no travel. Has had a productive cough, no rashes, no chest pain. has not had a PNA or flu imm this year.) Review of Systems Constitutional: denies: Fever, Chills Nose: denies: Rhinorrhea / runny nose, Foreign Body Throat: denies: Dental pain / toothache Cardiac: denies: Chest pain / pressure Respiratory: reports: Dyspnea, Cough, Wheezing GI: denies: Abdominal Pain, Nausea, Vomiting, Constipation, Diarrhea : denies: Dysuria, Frequency Skin: denies: Rash, Lesions Musculoskeletal: denies: Extremity swelling Neurologic: denies: Generalized weakness, Headache, LOC PD PAST MEDICAL HISTORY - Past Medical History Cardiovascular: Hypertension, High cholesterol, Coronary artery disease, [place] Psych: Depression - Past Surgical History Past Surgical History: Yes Ortho: Knee replacement Cardiovascular: Coronary stent - Present Medications Home Medications: Ambulatory Orders Medication Instructions Recorded Confirmed Aspirin [Ecotrin] 81 mg PO DAILY 03/21/14 05/10/17 Atorvastatin [Lipitor] 40 mg PO QPM 03/21/14 05/10/17 Cholecalciferol (Vitamin D3) 2,000 units PO DAILY 03/21/14 05/10/17 [Vitamin D3] Levothyroxine Sodium [Levoxyl] 100 mcg PO DAILY 03/21/14 05/10/17 Losartan [Cozaar] 50 mg PO BID 03/21/14 05/10/17 Potassium Chloride 20 meq PO DAILY 03/21/14 05/10/17 Citalopram [CeleXA] 20 mg PO DAILY 03/21/16 05/10/17 Rivaroxaban [Xarelto] 20 mg PO DAILY 03/21/16 05/10/17 Spironolactone 25 mg PO DAILY 12/29/16 05/10/17 Albuterol Sulf [Ventolin Hfa 2 puffs INH Q4HR PRN #1 inhaler 05/10/17 Inhaler] Azithromycin 250 mg PO DAILY #6 tablet 05/10/17 predniSONE [Prednisone] 40 mg PO DAILY #10 tablet 05/10/17 - Allergies Allergies/Adverse Reactions: Allergies Allergy/AdvReac Type Severity Reaction Status Date / Time nortriptyline [Nortriptyline] Allergy Unknown Verified 12/29/16 14:58 sertraline HCl * Allergy Cramps Verified 12/29/16 14:58 [From Zoloft] tolterodine tartrate * Allergy Dizziness Verified 12/29/16 14:58 [From Detrol] - Social History Does the pt smoke?: No Smoking Status: Never smoker Does the pt drink ETOH?: No Does the pt have substance abuse?: No - Immunizations Immunizations are current?: No - POLST Patient has POLST: Yes PD ED PE NORMAL - Vitals Vital signs reviewed: Yes - General General: Alert and oriented X 3, No acute distress, Well developed/nourished - Cardiac Cardiac: RRR, No murmur - Respiratory Respiratory: No respiratory distress. No: Clear bilaterally (bilateral wheezing ) - Abdomen Abdomen: No: Soft - Derm Derm: Normal color, No rash - Neuro Neuro: Alert and oriented X 3 Eye Opening: Spontaneous Motor: Obeys Commands Verbal: Oriented GCS Score: 15 - Psych Psych: Normal mood, Normal affect Results - Vitals Vitals: Vital Signs - 24 hr 05/10/17 05/10/17 05/10/17 12:03 13:34 14:19 Temperature 36.3 C L Heart Rate 68 57 L 68 Respiratory 18 18 Rate Blood Pressure 139/88 H O2 Saturation 95 96 Oxygen O2 Source Room air - Rads (name of study) CXR Radiology: Final report received (2. Bronchial thickening which can be seen with bronchitis or reactive airways disease) PD MEDICAL DECISION MAKING - ED course Complexity details: d/w patient ED course: pt w/o respiratory distress. has similar sx, pt does have a productive cough but no fevers. received a neb in the ER with improvement in symptoms, after discussion with her will start a course of ABX. will send home with steroids and albuterol also. she expressed understanding. Pt not septic. Departure - Departure Disposition: Home, Self Care Clinical Impression: Bronchitis Condition: Good Instructions: Bronchitis Acute Dc Follow-Up: Yamil Valenzuela MD [Primary Care Provider] - Prescriptions: Albuterol Sulf [Ventolin Hfa Inhaler] 2 puffs INH Q4HR PRN #1 inhaler PRN Reason: Shortness Of Air/Wheezing Azithromycin 250 mg PO DAILY #6 tablet predniSONE [Prednisone] 40 mg PO DAILY #10 tablet Comments: Take all of your medications like we discussed. Follow up with your primary care provider in the next 7-10 days. Return to the ER for any new or worsening symptoms, fevers, problems breathing, chest pain or any other concerning symptoms.
[2017-05-10 14:45] VITALS: BP 132/59
== END 2017-05-10 14:53 | disposition home or self-care (01) ==
LOC: ED 11:44
DX: J40 Bronchitis, not specified as acute or chronic (principal); I10 Essential (primary) hypertension; E78.00 Pure hypercholesterolemia, unspecified; I25.10 Atherosclerotic heart disease of native coronary artery without angina pectoris; I25.2 Old myocardial infarction; Z79.82 Long term (current) use of aspirin
CPT/HCPCS: 71020; 99283; J7620

== ENCOUNTER 2017-07-06 15:33 | Outpatient (CLI) | payer MEDICARE, OTHER | END 2017-07-06 15:34 | disposition critical access hospital (66) | LOC: EMS 15:33 | PROVIDERS: ATTEND Surgery | DX: R25.1 Tremor, unspecified (principal); W01.0XXA Fall on same level from slipping, tripping and stumbling without subsequent striking against object, initial encounter; Y92.002 Bathroom of unspecified non-institutional (private) residence as the place of occurrence of the external cause | CPT/HCPCS: A0425; A0429 ==

== ENCOUNTER 2017-07-06 16:10 | Inpatient (IN) | payer MEDICARE, OTHER ==
[2017-07-06] MEDS ORDERED: BENZOCAINE/MENTHOL LOZENGE MM STA (17:34)
[2017-07-06] MEDS ORDERED: ALBUTEROL NEB 2.5 MG/3 ML INH STA ×2 (17:47→19:47)
--- NOTE | 2017-07-06 17:50 | ED Physician Documentation ---
History of Present Illness - Stated complaint Stated Complaint: GLF - Chief complaint Chief Complaint: Trauma Hd/Nk - Additonal information Additional information: hx from pt and family 87 y/o f hx HTN HLD CAD sick for a week cough soa body aches fatigue saw PMD yesterday and got rx for robitussin AC which caused severe tremors, also for tessalon jalen was worried the codeine would cause constipation so he gave her a stool softener and now she is incontinent of stool too she is weak and the soa and cough are worse triage BP OK but when i entered the room her BP was 94 do not see CXR results of influenza swabs from clinic yesterday and now clinic is closed Review of Systems Constitutional: reports: Chills, Myalgias, Fatigue. denies: Fever Ears: denies: Ear pain Throat: denies: Sore throat Respiratory: reports: Dyspnea, Cough GI: reports: Diarrhea Neurologic: reports: Generalized weakness Endocrine: reports: Easy bruising / bleeding (on xarelto) Immunocompromised: denies: Immunocompromised PD PAST MEDICAL HISTORY - Past Medical History Past Medical History: Yes Cardiovascular: Hypertension, High cholesterol, Coronary artery disease, [place] Psych: Depression - Past Surgical History Past Surgical History: Yes Ortho: Knee replacement Cardiovascular: Coronary stent - Present Medications Home Medications: Ambulatory Orders Medication Instructions Recorded Confirmed Aspirin [Ecotrin] 81 mg PO DAILY 03/21/14 05/10/17 Atorvastatin [Lipitor] 40 mg PO QPM 03/21/14 05/10/17 Cholecalciferol (Vitamin D3) 2,000 units PO DAILY 03/21/14 05/10/17 [Vitamin D3] Levothyroxine Sodium [Levoxyl] 100 mcg PO DAILY 03/21/14 05/10/17 Losartan [Cozaar] 50 mg PO BID 03/21/14 05/10/17 Potassium Chloride 20 meq PO DAILY 03/21/14 05/10/17 Citalopram [CeleXA] 20 mg PO DAILY 03/21/16 05/10/17 Rivaroxaban [Xarelto] 20 mg PO DAILY 03/21/16 05/10/17 Spironolactone 25 mg PO DAILY 12/29/16 05/10/17 Albuterol Sulf [Ventolin Hfa 2 puffs INH Q4HR PRN #1 inhaler 05/10/17 Inhaler] Azithromycin 250 mg PO DAILY #6 tablet 05/10/17 predniSONE [Prednisone] 40 mg PO DAILY #10 tablet 05/10/17 - Allergies Allergies/Adverse Reactions: Allergies Allergy/AdvReac Type Severity Reaction Status Date / Time nortriptyline [Nortriptyline] Allergy Unknown Verified 12/29/16 14:58 sertraline HCl * Allergy Cramps Verified 12/29/16 14:58 [From Zoloft] tolterodine tartrate * Allergy Dizziness Verified 12/29/16 14:58 [From Detrol] - Social History Does the pt smoke?: No Smoking Status: Never smoker Does the pt drink ETOH?: No Does the pt have substance abuse?: No - Immunizations Immunizations are current?: No - POLST Patient has POLST: Yes PD ED PE NORMAL - Vitals Vital signs reviewed: Yes - General General: Other (awake and alert to answer questions, appears weak and exhausted) - HEENT HEENT: PERRL - Neck Neck: Supple, no meningeal sign - Cardiac Cardiac: RRR - Respiratory Respiratory: Other (wheezing and ronchi bilaterally) - Abdomen Abdomen: Soft, Non tender - Derm Derm: Normal color - Extremities Extremities: Other (mod symm edema) - Neuro Neuro: Alert and oriented X 3 Results - Vitals Vitals: Vital Signs - 24 hr 07/06/17 07/06/17 07/06/17 16:14 16:22 18:17 Temperature 36.8 C 36.8 C Heart Rate 86 86 80 Respiratory 22 22 20 Rate Blood Pressure 141/76 H 141/76 H 156/94 H O2 Saturation 94 94 95 Oxygen O2 Source Room air - Labs Labs: Laboratory Tests 07/06/17 07/06/17 07/06/17 17:56 17:56 17:56 WBC 8.1 RBC 4.66 Hgb 15.2 Hct 45.4 MCV 97.5 MCH 32.5 H MCHC 33.4 RDW 13.6 Plt Count 148 MPV 10.1 Neut # 5.8 Lymph # 1.1 L [place] # 1.2 H Eos # 0.0 Baso # 0.0 Absolute Nucleated RBC 0.00 Nucleated RBC % 0.0 Sodium 136 Potassium 4.3 Chloride 102 Carbon Dioxide 26 Anion Gap 8.0 BUN 21 H Creatinine 1.3 H Estimated GFR (MDRD) 39 L Glucose 114 H Lactic Acid 1.3 Calcium 9.8 Influenza A (Rapid) Influenza B (Rapid) Influenza Types A,B Ag 07/06/17 18:11 WBC RBC Hgb Hct MCV MCH MCHC RDW Plt Count MPV Neut # Lymph # [place] # Eos # Baso # Absolute Nucleated RBC Nucleated RBC % Sodium Potassium Chloride Carbon Dioxide Anion Gap BUN Creatinine Estimated GFR (MDRD) Glucose Lactic Acid Calcium Influenza A (Rapid) Negative Influenza B (Rapid) POSITIVE H Influenza Types A,B Ag + H - Rads (name of study) CXR Radiology: See rad report (no infiltrate, bronchiole thickening) PD MEDICAL DECISION MAKING - ED course ED course: pt too weak to ambulate and transfer independently briefly hypotensive but otherwise faintly nl VS very wheezy given neb no pna on CXR gave tamiflu will admit suggested family member who have been caring for pt discss prophylactic tamiflu with their PMDs - one has cancer other is immunosupressed Departure - Departure Disposition: ED Place in Observation Clinical Impression: Influenza B, Weakness, Wheezing Condition: Fair
[2017-07-06 18:05] LABS: BASOPHILS % (AUTO) 0.5 %; EOSINOPHILS % (AUTO) 0.1 %; HGB - HEMOGLOBIN 15.2 g/dL (12.0-16.0); LYMPHOCYTES # (AUTO) 1.1 10^3/uL (1.5-3.5); LYMPHOCYTES % (AUTO) 13.1 %; MEAN CORPUSCULAR HEMOGLOBIN 32.5 pg (27.0-31.0); MEAN CORPUSCULAR HGB CONC 33.4 g/dL (32.0-36.0); MEAN CORPUSCULAR VOLUME 97.5 fL (81.0-99.0); MEAN PLATELET VOLUME 10.1 fL (7.9-10.8); MONOCYTES # (AUTO) 1.2 10^3/uL (0.0-1.0); MONOCYTES % (AUTO) 14.9 %; NEUTROPHILS # (AUTO) 5.8 10^3/uL (1.5-6.6); NEUTROPHILS % (AUTO) 71.4 %; PLT - PLATELET COUNT 148 10^3/uL (130-450); RED BLOOD COUNT 4.66 10^6/uL (4.20-5.40); RED CELL DISTRIBUTION WIDTH 13.6 % (12.0-15.0); WHITE BLOOD COUNT 8.1 x10^3/uL (4.8-10.8)
[2017-07-06 18:13] LABS: CALCIUM 9.8 mg/dL (8.5-10.3); CREATININE 1.3 mg/dL (0.4-1.0)
--- NOTE | 2017-07-06 19:12 | XRAY Preliminary Report ---
Exam: XR CHEST 2 VIEW X-RAY IMPRESSION: 1. Cardiac enlargement unchanged. 2. No acute pulmonary process. 3. Bronchoscopic wall thickening. Findings are nonspecific concerning for bronchitis or reactive air was disease. [facility] SITE ID: [id number]
[2017-07-06] MEDS ORDERED: OSELTAMIVIR 75 MG CAPSULE PO STA (19:14)
--- NOTE | 2017-07-06 19:22 | XRAY Report ---
EXAM: CHEST RADIOGRAPHY EXAM DATE: 07/06/2017 06:49 PM. CLINICAL HISTORY: Cough hypotensive. COMPARISON: 05/10/2017. TECHNIQUE: 2 views. FINDINGS: Lungs/Pleura: No focal opacities evident. No pleural effusion. No pneumothorax. Normal volumes. Perib ronchial cuffing noted. Mediastinum: EKG leads overlie the chest. Stable mild cardiac enlargement. Other: Diffuse degenerative disk disease throughout the thoracic spine. Apical lordotic technique uti lized on the frontal radiograph. IMPRESSION: 1. Cardiac enlargement unchanged. 2. No acute pulmonary process. 3. Bronchial wall thickening. Findings are nonspecific concerning for bronchitis or reactive airways disease. [facility] Referring Provider Line: [phone] SITE ID: [id number]
[2017-07-06] MEDS ORDERED: SODIUM CHLORIDE FLUSH 0.9% 10 ML SYRINGE IVP PRN (19:51)
[2017-07-06] MEDS ORDERED: ZOLPIDEM 5 MG TABLET PO PRN (20:11)
[2017-07-06] MEDS ORDERED: ACETAMINOPHEN 325 MG TABLET PO PRN (20:11)
[2017-07-06] MEDS ORDERED: ONDANSETRON 4 MG/2 ML VIAL IVP PRN (20:11)
[2017-07-06] MEDS ORDERED: ALBUTEROL 6.7 GM INHALER INH PRN (20:21)
[2017-07-06 20:37] LABS: INR 1.5 (0.8-1.2); PT - PROTHROMBIN TIME 16.7 secs (9.9-12.6)
[2017-07-06] MEDS ORDERED: BUDESONIDE 180MCG FLEXHALER INH SCH (21:00)
[2017-07-06] MEDS: ATORVASTATIN 40 MG TABLET PO SCH (23:09)
[2017-07-06] MEDS: diltiaZEM 30 MG TABLET PO SCH (23:12)
[2017-07-06] MEDS: AZITHROMYCIN INJ 500 MG in SODIUM CHLORIDE 0.9% 250 ML IV SCH (23:12)
[2017-07-06] MEDS: guaiFENesin 600 MG TABLET PO SCH (23:12)
[2017-07-06] MEDS: methylPREDNISolone SUCCINATE 40 MG/ML VIAL IVP SCH (23:12)
[2017-07-06] MEDS: SODIUM CHLORIDE FLUSH 0.9% 10 ML SYRINGE IVP SCH (23:12)
[2017-07-06] MEDS: SACCHAROMYCES BOULARDII 250 MG CAPSULE PO SCH (23:12)
[2017-07-06] MEDS: PANTOPRAZOLE 40 MG TABLET PO SCH (23:13)
[2017-07-07] MEDS: IPRATROPIUM/ALBUTEROL 3 ML NEB INH SCH ×5 (02:49→19:00)
--- NOTE | 2017-07-07 03:16 | HISTORY & PHYSICAL EXAMINATION ---
DATE OF SERVICE: 07/06/2017 Physician: Randi Colbert MD DATE OF ADMISSION: 07/06/2017 CHIEF COMPLAINT: Cough and wheezing. HISTORY OF PRESENT ILLNESS: The patient is an 87-year-old, white female with multiple chronic medical problems who was a poor historian. At the ER when I examined and interviewed her, she was shaking, was wheezing, had difficulty speaking, appeared exhausted and could not provide detailed history. As much as the patient could tell me, she started with cough , fatigue and body aches about 2 weeks ago. At that time, she saw her primary care physician , Dr. Yamil Valenzuela, but she cannot tell me whether she got any medication. In any case, during the past 2 weeks, her symptoms got worse. In particular, she developed unbearable body aches, she was coughing intractably, developed respiratory wheezes. She was not aware of having fever. Got weak to the point that she could not get up and pushed her Lifeline. Subsequently, she was brought to the ER by EMS. Notably, the patient has tremors, which are chronic; however, got worse during the past few days. Upon presentation to the ER, the patient had a chest x-ray showing no focal infiltrate but bronchial thickening. White blood cell count was normal. Creatinine was slightly above baseline at 1.3. ER workup was significant for positive influenza B. EKG showed no ischemic sign. Vital signs were stable. Heart rate was in the 80s, blood pressure 140/70, oxygen saturation mid 90s on room air. However, the patient continued to wheeze, was shaking, appeared acutely ill. Wheezes were audible even without a stethoscope and the patient appeared with increased work of breathing. PAST MEDICAL HISTORY 1. Hypertension. 2. Dyslipidemia. 3. Hypothyroidism. 4. Depression. 5. Chronic kidney disease with creatinine baseline between 1.1 and 1.2. 6. Obstructive sleep apnea, using nocturnal CPAP. 7. Coronary artery disease, status post stent placement. 8. Last echocardiogram in December 2016 showed normal systolic function, right heart dilatation with pulmonic valve regurgitation and slightly increased right heart pressures. 9. Atrial fibrillation, on Xarelto anticoagulation. 10. History of breast cancer, received chemo- and radiation therapy. Patient reports recently has not followed up. Still feels that she has a breast lump. OUTPATIENT MEDICATIONS Current medication list is not yet verified. In the past the patient was on: 1. Xarelto. 2. Levothyroxine. 3. Celexa. 4. Vitamin D. 5. Lipitor. 6. Aspirin. 7. Albuterol. 8. Spironolactone. 9. Losartan. 10. Potassium supplements. 11. Her medication list also shows prednisone and Zithromax, which could be from previous hospital stay. ALLERGIES 1. NORTRIPTYLINE. 2. ZOLOFT. 3. TOLTERODINE. PRIMARY CARE PHYSICIAN: Yamil Valenzuela CODE STATUS: FULL CODE. SOCIAL HISTORY: The patient does not smoke. She lives with her . She uses a cane or a walker to ambulate. She does have plumber's helper for cleaning and housework twice a week for 4 hours. She does have someone, a friend, who assists her with medication administration. FAMILY HISTORY: Positive for coronary artery disease on both sides of the family; however, no premature coronary artery disease. REVIEW OF SYSTEMS: Please see pertinent positives listed above at history of present illness. The patient was a poor historian. She, however, denied all other complaints on the 12-point review. PHYSICAL EXAMINATION VITAL SIGNS: See listed above at history of present illness. GENERAL: The patient is a well-developed, elderly female who appeared with respiratory distress. She had difficulty speaking in full sentences and had increased work of breathing. RESPIRATORY: Audible wheezes even without a stethoscope bilaterally with increased expiratory/inspiratory ratio. CARDIOVASCULAR: S1, S2, irregular. I could not hear a murmur, rub or gallop in the setting of transmitted airway sounds. MUSCULOSKELETAL: Morbid obesity, atraumatic. 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 No significant lymphedema. ABDOMEN: Obese, benign. Bowel tones present. NEUROLOGIC: Alert, oriented, nonfocal. PSYCHIATRIC: Cooperative. SKIN: No jaundice, no pallor. ASSESSMENT AND PLAN 1. The patient is an 87-year-old female with multiple chronic medical problems , who is getting admitted with acute bronchitis, bronchoconstriction in the setting of influenza infection. The patient appeared frail, acutely ill, with increased work of breathing throughout her ER stay. Her wheezes were significant and I doubt she would improve within 24-48 hours. Therefore, she will be admitted as inpatient. With her underlying medical problems, she would have high risk to decompensate and get worse. Besides influenza, she might have a secondary bacterial infection/bronchitis as well. 2. Additional issue is renal failure. The patient does have chronic renal insufficiency. Her creatinine today is slightly above baseline. 3. Chronic problems include therapeutic Xarelto anticoagulation for atrial fibrillation. There is no bleeding complication. Regarding hemodynamics, the patient appeared hemodynamically stable, but again with her acute illness, there would be a risk for decompensation in particular for atrial fibrillation with rapid ventricular rate. PLAN AND ORDERS 1. Patient is getting admitted as inpatient. We will treat her respiratory symptoms with supportive care, small volume nebulizers; will be given IV steroids, proton pump inhibitor and inhaled steroid as well. We will continue anticoagulation with Xarelto; considering medication interactions and the patient's impaired renal function, I will slightly decrease the dose and check INR. Reconciled outpatient medications. Will continue mostly unchanged, except I would hold diuretics including losartan and spironolactone, as the patient appeared acutely ill and dehydrated. 2. To avoid decompensation with atrial fibrillation and rapid ventricular rate, I will start a small dose of Cardizem. 3. Will be given Tamiflu for the influenza and will be given empiric antibiotic for bronchitis. Will check respiratory cultures. 4. Code status is FULL CODE, which I verified with the patient. 5. Patient has history of nocturnal CPAP use for obstructive sleep apnea. That will be continued. ATTESTATION: I certify that the reasonable expectation is that this patient will be admitted and stay in the hospital for more than 24 hours. However, she will be either discharged home or transferred to another facility within 96 hours. That is based on my admission assessment, including the patient's complicated medical background and condition on admission. Time spent in the care of this patient was 60 minutes. TD: 07/07/2017 03:14 BERTHA
[2017-07-07] MEDS: methylPREDNISolone SUCCINATE 40 MG/ML VIAL IVP SCH ×3 (06:12→22:01)
[2017-07-07] MEDS: SODIUM CHLORIDE FLUSH 0.9% 10 ML SYRINGE IVP SCH ×3 (06:13→22:01)
[2017-07-07] MEDS: PANTOPRAZOLE 40 MG TABLET PO SCH (06:33)
[2017-07-07] MEDS ORDERED: ALBUTEROL NEB 2.5 MG/3 ML INH PRN (07:25)
[2017-07-07] MEDS: diltiaZEM 30 MG TABLET PO SCH ×3 (07:33→22:00)
[2017-07-07] MEDS: BUDESONIDE 0.5 MG/2 ML NEB INH SCH ×2 (07:50→19:00)
[2017-07-07] MEDS ORDERED: LEVOTHYROXINE 100 MCG TABLET PO SCH (09:00)
[2017-07-07] MEDS ORDERED: NON FORMULARY MED (Rivaroxaban [Xarelto] 20 MG) PO SCH (09:00)
[2017-07-07] MEDS: SACCHAROMYCES BOULARDII 250 MG CAPSULE PO SCH ×2 (10:22→17:08)
[2017-07-07] MEDS: OSELTAMIVIR 30 MG CAPSULE PO SCH ×2 (10:23→22:00)
[2017-07-07] MEDS: RIVAROXABAN 15 MG TABLET PO SCH (10:23)
[2017-07-07] MEDS: CITALOPRAM 10 MG TABLET PO SCH (10:23)
[2017-07-07] MEDS: ASPIRIN EC 81 MG TABLET PO SCH (10:23)
[2017-07-07] MEDS: CHOLECALCIFEROL 1,000 UNIT TABLET PO SCH (10:23)
[2017-07-07] MEDS: guaiFENesin 600 MG TABLET PO SCH (10:23)
[2017-07-07] MEDS: POLYETHYLENE GLYCOL 3350 17 GM PACKET PO SCH (10:24)
--- NOTE | 2017-07-07 16:18 | PROVIDER PROGRESS NOTE ---
Subjective - Prog Note Date Prog Note Date: 07/07/17 Prog Note Time: 16:16 - Subjective Pt reports feeling: Improved Subjective: she says she can breath again. still with hoarseness, congestion, and wheezing but doesn't feel like she's dying anymore. can eat and talk without severe abernathy. Current Medications - Current Medications Current Medications: Active Medications Acetaminophen (Tylenol) 650 mg PO Q4HR PRN PRN Reason: Pain 1 to 4 Albuterol () 2.5 mg INH Q4HR PRN PRN Reason: Shortness of Air/Wheezing Albuterol/Ipratropium (Duoneb) 3 ml INH RTQ6H [facility] Last Admin: 07/07/17 13:49 Dose: 3 ml Aspirin (Ecotrin) 81 mg PO DAILY [facility] Last Admin: 07/07/17 10:23 Dose: 81 mg Atorvastatin Calcium (Lipitor) 40 mg PO QPM [facility] Last Admin: 07/06/17 23:09 Dose: 40 mg Budesonide (Pulmicort) 0.5 mg INH RTBID [facility] Last Admin: 07/07/17 07:50 Dose: 0.5 mg Cholecalciferol (Vitamin D3) 2,000 unit PO DAILY [facility] Last Admin: 07/07/17 10:23 Dose: 2,000 unit Citalopram Hydrobromide (Celexa) 20 mg PO DAILY [facility] Last Admin: 07/07/17 10:23 Dose: 20 mg Diltiazem HCl (Cardizem) 30 mg PO TID [facility] Last Admin: 07/07/17 15:06 Dose: 30 mg Guaifenesin (Mucinex) 600 mg PO DAILY [facility] Last Admin: 07/07/17 10:23 Dose: 600 mg Azithromycin 500 mg/ Sodium (Chloride) 250 mls @ 250 mls/hr IV Q24H [facility] Last Infusion: 07/07/17 00:45 Dose: Infused Levothyroxine Sodium (Synthroid) 100 mcg PO DAILY [facility] Last Admin: 07/07/17 10:23 Dose: 100 mcg Methylprednisolone (Solu-Medrol (40mg Vial)) 60 mg IVP TID [facility] Last Admin: 07/07/17 15:09 Dose: 60 mg Ondansetron HCl (Zofran Inj) 4 mg IVP Q6HR PRN PRN Reason: Nausea / Vomiting Oseltamivir Phosphate (Tamiflu) 30 mg PO BID [facility] Stop: 07/11/17 09:01 Last Admin: 07/07/17 10:23 Dose: 30 mg Pantoprazole Sodium (Protonix) 40 mg PO QDAC [facility] Last Admin: 07/07/17 06:33 Dose: 40 mg Polyethylene Glycol (Miralax) 17 gm PO DAILY [facility] Last Admin: 07/07/17 10:24 Dose: 17 gm Rivaroxaban (Xarelto) 15 mg PO DAILY [facility] Last Admin: 07/07/17 10:23 Dose: 15 mg Saccharomyces Boulardii (Florastor) 250 mg PO BIDWM [facility] Last Admin: 07/07/17 10:22 Dose: 250 mg Sodium Chloride (Normal Saline Flush 0.9%) 10 ml IVP PRN PRN PRN Reason: NEEDED PER PROVIDER ORDERS Last Admin: 07/07/17 00:58 Dose: 10 ml Sodium Chloride (Normal Saline Flush 0.9%) 10 ml IVP Q8HR [facility] Last Admin: 07/07/17 15:09 Dose: 10 ml Zolpidem Tartrate (Ambien) 5 mg PO QPM PRN PRN Reason: Insomnia Aspirin [Ecotrin] 81 mg PO DAILY 03/21/14 Atorvastatin [Lipitor] 40 mg PO QPM 03/21/14 Cholecalciferol (Vitamin D3) [Vitamin D3] 2,000 units PO DAILY 03/21/14 Levothyroxine Sodium [Levoxyl] 100 mcg PO QDAC 03/21/14 Losartan [Cozaar] 50 mg PO BID 03/21/14 Potassium Chloride 20 meq PO DAILY 03/21/14 Citalopram [CeleXA] 20 mg PO DAILY 03/21/16 Spironolactone 25 mg PO QPM 12/29/16 Loperamide [Imodium] 2 mg PO BID 07/07/17 Rivaroxaban [Xarelto] 15 mg PO DAILY 07/07/17 Objective - Vital Signs/Intake & Output Reviewed Vital Signs: Yes Vital Signs: Vital Signs x48h Temp Pulse Pulse Resp BP BP BP 07/07/17 15:33 36.5 C 81 20 132/67 H 07/07/17 15:06 115/53 L 07/07/17 13:49 86 20 07/07/17 13:00 07/07/17 09:23 87 22 137/71 H Pulse Ox 07/07/17 15:33 95 07/07/17 15:06 07/07/17 13:49 07/07/17 13:00 94 07/07/17 09:23 93 Intake & Output: Intake & Output 07/04/17 07/05/17 07/06/17 07/07/17 23:59 23:59 23:59 23:59 Intake Total 1470 Balance 1470 - Objective General Appearance: positive: No acute distress, Alert, Other (moderately overweight elderly female. Hoarse, nasal voice, wheezing cough but NAD) Eyes Bilateral: positive: PERRL, Other (eyelids congested) ENT: positive: Pharyngeal erythema Neck: positive: No JVD, Lymphadenopathy (R), Lymphadenopathy (L). negative: Stiff neck, Carotid bruit Respiratory: positive: Chest non-tender, No respiratory distress, Wheezes, Rhonchi Cardiovascular: positive: Regular rate & rhythm, Systolic murmur. negative: Gallop/S4, Friction rub Skin: positive: Warm, Dry Extremities: positive: Full ROM, No pedal edema Neurologic/Psychiatric: positive: Oriented x3 (except vague on the day), CN's nml (2-12), Motor nml, Disoriented to time, Weakness - Lab Results Fish Bones: 07/06/17 17:56 07/06/17 17:56 Assessment/Plan - Problem List (1) Acute bronchitis with asthma Impression: from influenza. Improving Continue duoneb, solumedrol, azithromycin, tamiflu, pulmicort (2) Influenza B Impression: day #2 influenza (3) NILA (acute kidney injury) Impression: from dehydration Baseline BUN, Creat 20/1.0 yesterday she was 21/1.3 Will reorder for tomorrow (4) Chronic atrial fibrillation Impression: on cardizem and xarelto. Controlled rate. No change in meds.
[2017-07-07] MEDS ORDERED: SODIUM CHLORIDE FLUSH 0.9% 10 ML SYRINGE ONE (21:58)
[2017-07-07] MEDS: ATORVASTATIN 40 MG TABLET PO SCH (22:00)
[2017-07-07] MEDS: AZITHROMYCIN INJ 500 MG in SODIUM CHLORIDE 0.9% 250 ML IV SCH (22:00)
[2017-07-08] MEDS: PANTOPRAZOLE 40 MG TABLET PO SCH (06:04)
[2017-07-08] MEDS: SODIUM CHLORIDE FLUSH 0.9% 10 ML SYRINGE IVP SCH ×3 (06:05→20:55)
[2017-07-08] MEDS: methylPREDNISolone SUCCINATE 40 MG/ML VIAL IVP SCH ×3 (06:05→20:54)
[2017-07-08] MEDS: diltiaZEM 30 MG TABLET PO SCH ×3 (06:07→21:25)
[2017-07-08] MEDS: IPRATROPIUM/ALBUTEROL 3 ML NEB INH SCH ×4 (07:50→20:45)
[2017-07-08] MEDS: BUDESONIDE 0.5 MG/2 ML NEB INH SCH ×2 (07:51→20:45)
--- NOTE | 2017-07-08 08:15 | PROVIDER PROGRESS NOTE ---
Subjective - Prog Note Date Prog Note Date: 07/08/17 Prog Note Time: 19:54 - Subjective Pt reports feeling: Improved Subjective: she is weak. tremors in arms and legs worse as she strugles to get to bathroom. but breathing so much better overall Current Medications - Current Medications Current Medications: Active Medications Acetaminophen (Tylenol) 650 mg PO Q4HR PRN PRN Reason: Pain 1 to 4 Albuterol () 2.5 mg INH Q4HR PRN PRN Reason: Shortness of Air/Wheezing Albuterol/Ipratropium (Duoneb) 3 ml INH RTQ6H [facility] Last Admin: 07/08/17 13:29 Dose: 3 ml Aspirin (Ecotrin) 81 mg PO DAILY [facility] Last Admin: 07/08/17 11:00 Dose: 81 mg Atorvastatin Calcium (Lipitor) 40 mg PO QPM [facility] Last Admin: 07/07/17 22:00 Dose: 40 mg Budesonide (Pulmicort) 0.5 mg INH RTBID [facility] Last Admin: 07/08/17 07:51 Dose: 0.5 mg Cholecalciferol (Vitamin D3) 2,000 unit PO DAILY [facility] Last Admin: 07/08/17 10:59 Dose: 2,000 unit Citalopram Hydrobromide (Celexa) 20 mg PO DAILY [facility] Last Admin: 07/08/17 11:00 Dose: 20 mg Diltiazem HCl (Cardizem) 30 mg PO TID [facility] Last Admin: 07/08/17 14:03 Dose: Not Given Guaifenesin (Mucinex) 600 mg PO DAILY [facility] Last Admin: 07/08/17 11:00 Dose: 600 mg Azithromycin 500 mg/ Sodium (Chloride) 250 mls @ 250 mls/hr IV Q24H [facility] Last Infusion: 07/08/17 00:21 Dose: Infused Levothyroxine Sodium (Synthroid) 100 mcg PO QDAC [facility] Methylprednisolone (Solu-Medrol (40mg Vial)) 60 mg IVP TID [facility] Last Admin: 07/08/17 14:04 Dose: 60 mg Ondansetron HCl (Zofran Inj) 4 mg IVP Q6HR PRN PRN Reason: Nausea / Vomiting Oseltamivir Phosphate (Tamiflu) 30 mg PO BID [facility] Stop: 07/11/17 09:01 Last Admin: 07/08/17 10:59 Dose: 30 mg Pantoprazole Sodium (Protonix) 40 mg PO QDAC [facility] Last Admin: 07/08/17 06:04 Dose: 40 mg Phenol/Menthol (Chloraseptic) 2 sprays MM Q2HR PRN PRN Reason: Throat Pain Last Admin: 07/08/17 18:06 Dose: 2 sprays Polyethylene Glycol (Miralax) 17 gm PO DAILY [facility] Last Admin: 07/08/17 10:59 Dose: 17 gm Rivaroxaban (Xarelto) 15 mg PO DAILY [facility] Last Admin: 07/08/17 10:59 Dose: 15 mg Saccharomyces Boulardii (Florastor) 250 mg PO BIDWM [facility] Last Admin: 07/08/17 16:24 Dose: 250 mg Sodium Chloride (Normal Saline Flush 0.9%) 10 ml IVP PRN PRN PRN Reason: NEEDED PER PROVIDER ORDERS Last Admin: 07/07/17 00:58 Dose: 10 ml Sodium Chloride (Normal Saline Flush 0.9%) 10 ml IVP Q8HR [facility] Last Admin: 07/08/17 14:04 Dose: 10 ml Throat Lozenges (Cepacol) 1 lozenge MM Q2HR PRN PRN Reason: Throat pain Last Admin: 07/08/17 18:06 Dose: 1 lozenge Zolpidem Tartrate (Ambien) 5 mg PO QPM PRN PRN Reason: Insomnia Aspirin [Ecotrin] 81 mg PO DAILY 03/21/14 Atorvastatin [Lipitor] 40 mg PO QPM 03/21/14 Cholecalciferol (Vitamin D3) [Vitamin D3] 2,000 units PO DAILY 03/21/14 Levothyroxine Sodium [Levoxyl] 100 mcg PO QDAC 03/21/14 Losartan [Cozaar] 50 mg PO BID 03/21/14 Potassium Chloride 20 meq PO DAILY 03/21/14 Citalopram [CeleXA] 20 mg PO DAILY 03/21/16 Spironolactone 25 mg PO QPM 12/29/16 Loperamide [Imodium] 2 mg PO BID 07/07/17 Rivaroxaban [Xarelto] 15 mg PO DAILY 07/07/17 Objective - Vital Signs/Intake & Output Reviewed Vital Signs: Yes Vital Signs: Vital Signs x48h Pulse Resp BP 07/08/17 07:53 66 20 02/08/18 06:07 126/65 Intake & Output: Intake & Output 07/05/17 07/06/17 07/07/17 07/08/17 23:59 23:59 23:59 23:59 Intake Total 2019 750 Output Total 1 Balance 2019 749 - Objective General Appearance: positive: No acute distress, Alert, Other (hoarse voiced, nasal tone, elderly obese female who is sitting in her chair. occ cough.) Eyes Bilateral: positive: PERRL, EOMI ENT: positive: No signs of dehydration, Pharyngeal erythema Neck: positive: No JVD. negative: Stiff neck, Carotid bruit Respiratory: positive: Chest non-tender, No respiratory distress, Wheezes. negative: Rales, Rhonchi Cardiovascular: positive: Irregularly irregular, Systolic murmur. negative: Gallop/S4, Friction rub Abdomen: positive: Non-tender, No organomegaly, Nml bowel sounds, No distention Skin: positive: Warm, Dry Extremities: positive: Full ROM, No pedal edema Neurologic/Psychiatric: positive: Oriented x3, CN's nml (2-12), Motor nml (but weak and with tremors at rest) - Lab Results Fish Bones: 07/06/17 17:56 07/08/17 09:07 Assessment/Plan - Problem List (1) Acute bronchitis with asthma Impression: from influenza. Improving. She is 93 to 96% on 2 liters. Check on room air. Continue duoneb, solumedrol, azithromycin, tamiflu, pulmicort (2) Influenza B Impression: day #3 tamiflu (3) NILA (acute kidney injury) Impression: from dehydration Baseline BUN, Creat 20/1.0 07/06/17 she was 21/1.3 Today she is 35 and 1.4. give more IVF for hydration. glucose is up with the steroids. (4) Chronic atrial fibrillation Impression: on cardizem and xarelto. Controlled rate. No change in meds. (5) weakness after illness. PT eval and Tx.
[2017-07-08 09:23] LABS: CALCIUM 9.6 mg/dL (8.5-10.3); CREATININE 1.4 mg/dL (0.4-1.0)
[2017-07-08] MEDS: RIVAROXABAN 15 MG TABLET PO SCH (10:59)
[2017-07-08] MEDS: CHOLECALCIFEROL 1,000 UNIT TABLET PO SCH (10:59)
[2017-07-08] MEDS: POLYETHYLENE GLYCOL 3350 17 GM PACKET PO SCH (10:59)
[2017-07-08] MEDS: OSELTAMIVIR 30 MG CAPSULE PO SCH ×2 (10:59→20:55)
[2017-07-08] MEDS: SACCHAROMYCES BOULARDII 250 MG CAPSULE PO SCH ×2 (11:00→16:24)
[2017-07-08] MEDS: CITALOPRAM 10 MG TABLET PO SCH (11:00)
[2017-07-08] MEDS: guaiFENesin 600 MG TABLET PO SCH (11:00)
[2017-07-08] MEDS: ASPIRIN EC 81 MG TABLET PO SCH (11:00)
[2017-07-08] MEDS ORDERED: PHENOL THROAT SPRAY 177 ML MM PRN (16:24)
[2017-07-08] MEDS ORDERED: BENZOCAINE/MENTHOL LOZENGE MM PRN (16:24)
[2017-07-08] MEDS: AZITHROMYCIN INJ 500 MG in SODIUM CHLORIDE 0.9% 250 ML IV SCH (20:53)
[2017-07-08] MEDS: ATORVASTATIN 40 MG TABLET PO SCH (20:55)
[2017-07-09] MEDS: IPRATROPIUM/ALBUTEROL 3 ML NEB INH SCH ×3 (00:45→13:39)
[2017-07-09] MEDS: PANTOPRAZOLE 40 MG TABLET PO SCH (06:27)
[2017-07-09] MEDS: SODIUM CHLORIDE FLUSH 0.9% 10 ML SYRINGE IVP SCH ×2 (06:27→14:22)
[2017-07-09] MEDS: methylPREDNISolone SUCCINATE 40 MG/ML VIAL IVP SCH (06:27)
[2017-07-09] MEDS: diltiaZEM 30 MG TABLET PO SCH ×2 (06:28→14:19)
[2017-07-09] MEDS ORDERED: LEVOTHYROXINE 100 MCG TABLET PO SCH (07:00)
[2017-07-09] MEDS: BUDESONIDE 0.5 MG/2 ML NEB INH SCH (07:41)
[2017-07-09] MEDS ORDERED: SODIUM CHLORIDE 0.9% 500 ML IV ONE (07:41)
[2017-07-09 08:48] LABS: CALCIUM 10.5 mg/dL (8.5-10.3); CREATININE 1.4 mg/dL (0.4-1.0)
[2017-07-09] MEDS: SACCHAROMYCES BOULARDII 250 MG CAPSULE PO SCH (09:15)
[2017-07-09] MEDS: guaiFENesin 600 MG TABLET PO SCH (09:17)
[2017-07-09] MEDS: CHOLECALCIFEROL 1,000 UNIT TABLET PO SCH (09:19)
[2017-07-09] MEDS: ASPIRIN EC 81 MG TABLET PO SCH (09:20)
[2017-07-09] MEDS: OSELTAMIVIR 30 MG CAPSULE PO SCH (09:20)
[2017-07-09] MEDS: CITALOPRAM 10 MG TABLET PO SCH (09:25)
[2017-07-09] MEDS: RIVAROXABAN 15 MG TABLET PO SCH (09:25)
[2017-07-09] MEDS: POLYETHYLENE GLYCOL 3350 17 GM PACKET PO SCH (09:30)
--- NOTE | 2017-07-09 11:46 | Discharge Plan ---
Discharge Plan Disposition: 03 DC/Xfer Condition: Fair Prescriptions: Amoxicillin 500 mg PO TID #9 capsule Azithromycin 250 mg PO DAILY #3 tablet No Smoking: If you smoke, Please STOP! Call for help. Follow-up with: Yamil Valenzuela MD [Primary Care Provider] -
--- NOTE | 2017-07-09 11:50 | Discharge Plan ---
"Discharge Plan for SNF / MO - DC Plan and Transition Orders Disposition: 03 SNF DC/Xfer Condition: Fair SNF Transition Orders: Admit to: [facility] under the care of Yamil Valenzuela MD Discharge Diagnosis: influenza acute bronchitis with asthma chronic atrial fib hyperglycemia from steroids NILA from dehydration and hyperglycemia. Check BMP generalized weakness from illness Medicare Certification: I certify that [facility] sn[facility] care is medically necessary on a continuing basis for any of the conditions for which she/he is receiving care during hospitalization. Notify PCP of admission and forward orders to primary provider for signature. Weight on admission and weekly. Call PCP immediately if weight increases by 5 pounds or if patient develops dyspnea, chest pain/tightness or edema. House Bowel Program: yes If no BM after 2 days, nurse may give M.O.M. 30ml PO PRN and /or ducolax Supp 1 CA and /or BRITTANY 250mg P.O., and/or senna 1-2 tabs PO. On day 3 nurse may give repeat above order until residents constipation is resolved. Immunizations: Annual Influenza Vaccine: yes. (between Jan 29 and August 28.) Unless allergy or already given Two-Step PPD: yes per [facility] [id number] or appropriate documentation of approved exceptions Treatments & Other Orders: xopenex via nebulizer q2h prn wheezing Oxygen Orders: keep O2 sats >92% with nasal canula prn Lab Tests or X-Rays Orders: BMP on 07/12/17 Orthopedic Orders: none. Medications: PLEASE REFER TO THE DISCHARGE MEDICATION LIST. Insulin Orders? no Diagnosis: no Diabetes Initiate hypo and hyperglycemia protocols for BG <70 and BG >375. May check BG prn for signs/symptoms of dysglycemia. Frequency of BG checks: [AC/Meal/HS] Basal Insulin: [] Lantus 100 units / ml inject subq as follows: [] [] Other: [] Correction Insulin: - Select the type of insulin below [Choose: Novolog/Humalog]100 units /ml insulin inject subq per orders indicate below [] LOW DOSE [] MODERATE DOSE [] MODERATE/HIGH DOSE [] HIGH DOSE GB UNITS GB UNITS GB UNITS GB UNITS 61-140 0 UNITS 61-140 0 UNITS 61-140 0 UNITS 61-140 0 UNITS 141-175 1 UNITS 141-175 1 UNITS 141-175 2 UNITS 141-175 3 UNITS 176-225 2 UNITS 176-225 3 UNITS 176-225 4 UNITS 176-225 5 UNITS 226-275 3 UNITS 226-275 5 UNITS 226-275 6 UNITS 226-275 7 UNITS 276-325 4 UNITS 276-325 7 UNITS 276-325 8 UNITS 276-325 9 UNITS 326-375 5 UNITS 326-375 9 UNITS 326-375 10 UNITS 326-375 11 UNITS >375 CONTACT MD >375 CONTACT MD >375 CONTACT MD >375 CONTACT MD Custom Dosing: [Choose: None/Novolog/Humalog] 100 units/ml Insulin inject subq as follows: GB Units 61-140 [] Units 141-175 [] Units 176-225 [] Units 226-275 [] Units 276-325 []Units 326-375 [] Units >375 Contact MD Allergies and Adverse Reactions: Allergies Allergy/AdvReac Type Severity Reaction Status Date / Time nortriptyline [Nortriptyline] Allergy Unknown Verified 07/06/17 19:45 sertraline HCl * Allergy Cramps Verified 07/06/17 19:45 [From Zoloft] tolterodine tartrate * Allergy Dizziness Verified 07/06/17 19:45 [From Detrol] - Medications New Prescriptions: Amoxicillin 500 mg PO TID #9 capsule Azithromycin 250 mg PO DAILY #3 tablet Levalbuterol [Xopenex] 1.25 mg INH RTQ4H #30 neb - Diet Type: No added salt Texture: Regular Liquids: Thin May have monthly special meal: Yes - Therapies | Activity Therapy: Evaluation | Treat if indicated: PT, OT Rehabilitation Potential: Maximize functional status, Return to independent living Activity: Activity as Tolerated Assistance Devices: Walker Additional Instructions: The patient was initially very short of breath, wheezing, and hypoxic when she was admitted. Over the last few days she is improved tremendously. She still has an occasional wheeze, nasal tone of voice. The steroids that were given to her caused her to have hyperglycemia and a rise in BUN/creatinine but she did not need insulin. It did make her slightly dehydrated. Please make sure she drinks plenty of water while she is there. She was on spironolactone on admission and I have held that because the BUN/ creatinine. I have spoken to Kemi Hawk about her and make sure she gets the results of the BMP on Wednesday. Follow Up: Dr. Valenzuela is her PCP and he wiill ask when to see him in his office."
[2017-07-09 15:45] VITALS: BP 132/79
--- NOTE | 2017-07-10 23:06 | DISCHARGE SUMMARY ---
Physician: Augustina Norman MD DATE OF ADMISSION: 07/06/2017. DATE OF DISCHARGE: 07/09/2017. PRIMARY CARE PHYSICIAN: Her primary care provider is Yamil Valenzuela MD. DISCHARGE DIAGNOSES 1. Acute bronchitis. 2. Acute bronchospasm. 3. Influenza B. 4. Acute kidney injury. 5. Chronic atrial fibrillation. 6. Hyperglycemia, drug induced. DISCHARGE MEDICATIONS 1. Albuterol via nebulizer every 4 hours p.r.n. 2. Xopenex 1.25 mg via nebulizer every 4 hours p.r.n. to avoid tachycardia. 3. Amoxicillin 500 mg p.o. t.i.d., to stop on 07/12/2017. 4. Azithromycin 250 mg p.o. daily, to stop on 07/12/2017. 5. Tamiflu 30 mg p.o. b.i.d. for 2 more doses. 6. Aspirin 81 mg p.o. daily. 7. Lipitor 40 mg p.o. daily. 8. Vitamin D 2000 units daily. 9. Celexa 20 mg daily. 10. Levoxyl 100 mcg p.o. daily. 11. Loperamide 2 mg p.o. b.i.d. p.r.n. diarrhea. 12. Cozaar 50 mg p.o. b.i.d. 13. Potassium chloride 20 mEq p.o. daily. 14. Xarelto 15 mg p.o. daily. PRINCIPAL PROCEDURES 1. Chest x-ray with cardiac enlargement that is unchanged from April 2017. No acute pulmonary process. Bronchial wall thickening and findings are nonspecific and suggestive of bronchitis or reactive airways disease. 2. Blood cultures without growth after 2 days. 3. Influenza B rapid screen positive and influenza virus type AB antigen positive. HISTORY OF THE PRESENT ILLNESS: This [place] 87-year-old white female lives in her own home and uses a walker because of tremors. 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 She began with a cough, fatigue, body aches 2 weeks ago. She was seen by her primary care provider but could not remember what medication she got. In the two weeks prior to admission, her symptoms became worse, especially the unbearable body aches. She was coughing intractably and developed wheezing. She became so weak that she pushed [employer] because she was afraid of falling. She came to the emergency room where chest x-ray showed no infiltrate, white cell count was normal, creatinine slightly above baseline at 1.3. However, she had influenza. EKG was without ischemic changes. On physical examination, she was shaking, wheezing, appeared severely acutely ill. Wheezes were audible even without a stethoscope, with increased work of breathing. HOSPITAL COURSE: She was started on empiric antibiotic therapy for possible development of pneumonia. Started on Tamiflu. She was given nebulizers, steroids, and IV fluids. She did very well with this and within 48 hours was able to speak without a wheeze, eat , get up out of bed and sit at her chair for eating. Unfortunately, she developed acute kidney insufficiency, most likely secondary to the secondary hyperglycemia from steroids. Glucose on 07/08/2017 was 273. On 07/09/2017, it was 230. She was given a bolus of 0.9 normal saline on the day of discharge for a BUN of 42 and a creatinine of 1.4 where her baseline was 21 and 1.3. Because she was very weak, she received a PT evaluation, and they thought she would be a candidate for strengthening exercises at [facility]. As such, she was transferred in stable condition. She is now able to get up out of a chair with the use of a walker, but still profoundly weak enough that her arms and legs start to shake in just walking to the bathroom. PHYSICAL EXAMINATION VITAL SIGNS: Temperature is 37. Her blood pressure is 155/74 and 132/79. Pulse is 85. Respirations 20. She is 93% on room air. With respiratory therapy challenge, she did not desaturate. GENERAL: She is a short statured, moderately overweight, elderly female. alert and oriented and an absolute delight to talk to. NECK: Supple without adenopathy. RESPIRATORY: She still has a nasal tone of voice with some mild rhinorrhea, but the wheezing has much improved. The only time it comes out now is when she exerts herself trying to go to the bathroom. There is no tachypnea. No use of accessory muscles. ABDOMEN: Soft and nontender. HEART: She has an irregular rate and rhythm. EXTREMITIES: Without edema. She is asked to follow up with Dr. Valenzuela when she leaves the nursing home facility. I did do a warm hand off with Kemi Hawk. I have asked that her BMP checked on Wednesday to make sure that her BUN and creatinine are not worsening. I stopped her steroids and hopefully her secondary hyperglycemia will also resolve.. Because she and her are quite elderly and she has been taking care of him, we have reached out to family members as well as close family friends. Advance care planning will be taking place in the outpatient setting in the near future. Plans will be made for where they may need to live when she gets out of the nursing home facility. Greater than 30 minutes was spent in coordinating discharge. cc: Yamil Valenzuela MD, TD: 07/10/2017 23:03 BERTHA
== END 2017-07-09 17:00 | DRG 194 ==
LOC: EDUNIT# → ED 16:10 → MS3 19:51
PROVIDERS: ADMIT Internal Medicine; ATTEND Specialist
DX: J10.1 Influenza due to other identified influenza virus with other respiratory manifestations (principal); R53.1 Weakness; R06.2 Wheezing; N17.9 Acute kidney failure, unspecified; E78.00 Pure hypercholesterolemia, unspecified; J20.8 Acute bronchitis due to other specified organisms; J45.909 Unspecified asthma, uncomplicated; I12.9 Hypertensive chronic kidney disease with stage 1 through stage 4 chronic kidney disease, or unspecified chronic kidney disease; I48.2 Chronic atrial fibrillation; N18.9 Chronic kidney disease, unspecified; G47.33 Obstructive sleep apnea (adult) (pediatric); I25.10 Atherosclerotic heart disease of native coronary artery without angina pectoris; T38.0X5A Adverse effect of glucocorticoids and synthetic analogues, initial encounter; R73.9 Hyperglycemia, unspecified; R25.1 Tremor, unspecified; F32.9 Major depressive disorder, single episode, unspecified; E66.01 Morbid (severe) obesity due to excess calories; Z68.39 Body mass index [BMI] 39.0-39.9, adult; E78.5 Hyperlipidemia, unspecified; E03.9 Hypothyroidism, unspecified; Z79.82 Long term (current) use of aspirin; Z79.51 Long term (current) use of inhaled steroids; Z79.52 Long term (current) use of systemic steroids; Z79.01 Long term (current) use of anticoagulants; Z79.899 Other long term (current) drug therapy; I25.2 Old myocardial infarction; Z96.659 Presence of unspecified artificial knee joint; Z95.5 Presence of coronary angioplasty implant and graft; Z85.3 Personal history of malignant neoplasm of breast; Z92.21 Personal history of antineoplastic chemotherapy; Z92.3 Personal history of irradiation
CPT/HCPCS: 36415; 71046; 80048; 83605; 85025; 85610; 87040; 87275; 87276; 94640; 99284; 99285

== ENCOUNTER 2017-07-15 08:00 | Outpatient (CLI) | payer MEDICARE, OTHER ==
[2017-07-15 09:53] LABS: CALCIUM 9.8 mg/dL (8.5-10.3); CREATININE 1.2 mg/dL (0.4-1.0)
== END 2017-07-15 08:01 | disposition home or self-care (01) ==
LOC: LAB.R 08:00
DX: I48.91 Unspecified atrial fibrillation (principal)
CPT/HCPCS: 80048

== ENCOUNTER 2017-07-19 09:33 | Outpatient (CLI) | payer MEDICARE, OTHER ==
[2017-07-19 16:59] LABS: CALCIUM 10.2 mg/dL (8.5-10.3); CREATININE 1.4 mg/dL (0.4-1.0)
[2017-07-19 17:11] LABS: BILIRUBIN,URINE NEGATIVE (NEGATIVE); GLUCOSE, URINE (UA) NEGATIVE (NEGATIVE); KETONES,URINE (UA) NEGATIVE (NEGATIVE); LEUKOCYTE ESTERASE, URINE MODERATE (NEGATIVE); NITRITE,URINE NEGATIVE (NEGATIVE); OCCULT BLOOD,URINE LARGE (NEGATIVE); PH,URINE 6.5 PH (5.0-7.5); PROTEIN,URINE 100 mg/dL (NEGATIVE); UROBILINOGEN,URINE 2 E.U./dL (NORMAL)
[2017-07-19 17:12] LABS: CLARITY,URINE CLOUDY (CLEAR)
[2017-07-19 17:13] LABS: BACTERIA,URINE Moderate /HPF (None Seen); RBC,URINE TNTC /HPF (0-5); SQUAMOUS EPITHELIAL CELL,UR NONE SEEN (<= Few)
== END 2017-07-19 09:34 | disposition home or self-care (01) ==
LOC: LAB.R 09:33
DX: R30.0 Dysuria (principal); J18.9 Pneumonia, unspecified organism
CPT/HCPCS: 80048; 81001; 81003; 87077; 87086

== ENCOUNTER 2017-08-04 09:28 | Outpatient (CLI) | payer MEDICARE, OTHER ==
[2017-08-04 17:25] LABS: CALCIUM 9.9 mg/dL (8.5-10.3)
== END 2017-08-04 09:29 | disposition home or self-care (01) ==
LOC: LAB.F 09:28
PROVIDERS: ATTEND Internal Medicine
DX: I48.91 Unspecified atrial fibrillation (principal)
CPT/HCPCS: 36415; 80048

== ENCOUNTER 2017-09-03 11:12 | Outpatient (CLI) | payer MEDICARE, OTHER ==
[2017-09-03 18:28] LABS: CALCIUM 10.2 mg/dL (8.5-10.3)
== END 2017-09-03 11:13 | disposition home or self-care (01) ==
LOC: LAB.F 11:12
PROVIDERS: ATTEND Internal Medicine
DX: I48.91 Unspecified atrial fibrillation (principal)
CPT/HCPCS: 36415; 80048

== ENCOUNTER 2017-12-27 17:27 | Outpatient (CLI) | payer MEDICARE, OTHER ==
--- NOTE | 2017-12-28 09:26 | XRAY Report ---
Procedure Date: 12/27/2017 Accession Number: [id number] / [id number] Procedure: XR - Hip w/Pelvis 2-3V LT CPT Code: FULL RESULT: EXAM: Hip w/Pelvis 2-3V LT DATE: 12/27/2017 5:57 PM CLINICAL HISTORY: PELVIS PAIN S/P FALL COMPARISON: 12/29/2016. TECHNIQUE: 1 view of the pelvis and 1 view of the hip. FINDINGS: The radiographs are limited by technique and overlying artifact from presumably clothing. Bones: No fracture or dislocation is identified. Joints: There is bilateral femoral acetabular joint space loss, more pronounced in the medial aspect of the acetabulum bilaterally. This appears similar to 2017. Soft Tissues: Within normal limits. IMPRESSION: No fracture or dislocation is identified. Somewhat limited exam. 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 [facility]
== END 2017-12-27 17:28 | disposition home or self-care (01) ==
LOC: DI 17:27
PROVIDERS: ATTEND Internal Medicine
DX: M16.0 Bilateral primary osteoarthritis of hip (principal)

== ENCOUNTER 2018-06-20 16:57 | Emergency (ER) | payer MEDICARE, OTHER ==
--- NOTE | 2018-06-20 18:14 | XRAY Report ---
Reason: cough Procedure Date: 06/20/2018 Accession Number: [id number] / [id number] Procedure: XR - Chest 2 View X-Ray CPT Code: 48981 FULL RESULT: EXAM: CHEST RADIOGRAPHY EXAM DATE: 06/20/2018 05:50 PM. CLINICAL HISTORY: Cough. COMPARISON: CHEST 2 VIEW 07/06/2017 6:35 PM. TECHNIQUE: 2 views. FINDINGS: Lungs/Pleura: No focal opacities evident. No pleural effusion. No pneumothorax. Normal volumes. Mediastinum: Heart size normal. Mild aortic arch calcification. Mild tortuosity in the descending thoracic aorta. Other: Mild multilevel mid to lower thoracic degenerative disk disease. IMPRESSION: Negative chest. Lungs are clear. [facility]
[2018-06-20 19:01] LABS: BASOPHILS # (AUTO) 0.1 10^3/uL (0.0-0.1); BASOPHILS % (AUTO) 0.8 %; EOSINOPHILS # (AUTO) 0.3 10^3/uL (0.0-0.7); EOSINOPHILS % (AUTO) 2.9 %; LYMPHOCYTES # (AUTO) 2.1 10^3/uL (1.5-3.5); LYMPHOCYTES % (AUTO) 18.1 %; MEAN CORPUSCULAR HEMOGLOBIN 33.1 pg (27.0-31.0); MEAN CORPUSCULAR HGB CONC 32.5 g/dL (32.0-36.0); MEAN CORPUSCULAR VOLUME 101.7 fL (81.0-99.0); MEAN PLATELET VOLUME 10.1 fL (7.9-10.8); MONOCYTES % (AUTO) 8.4 %; NEUTROPHILS # (AUTO) 8.1 10^3/uL (1.5-6.6); NEUTROPHILS % (AUTO) 69.8 %; PLT - PLATELET COUNT 161 10^3/uL (130-450); RED BLOOD COUNT 4.84 10^6/uL (4.20-5.40); RED CELL DISTRIBUTION WIDTH 13.5 % (12.0-15.0); WHITE BLOOD COUNT 11.6 x10^3/uL (4.8-10.8)
[2018-06-20 19:15] LABS: ALBUMIN 3.9 g/dL (3.2-5.5); ALBUMIN/GLOBULIN RATIO 1.2 (1.0-2.2); BILIRUBIN,TOTAL 1.2 mg/dL (0.2-1.0); MAGNESIUM 1.8 mg/dL (1.7-2.8); TOTAL PROTEIN 7.1 g/dL (6.7-8.2)
--- NOTE | 2018-06-20 19:50 | ED Physician Documentation ---
PD HPI DYSPNEA - Stated complaint Stated Complaint: WHEEZY/SOA - Chief complaint Chief Complaint: Resp - History obtained from History obtained from: Patient, Family - History of Present Illness Timing - onset: How many days ago (2-3) Timing - onset during: Light activity Timing - duration: Days (2-3) Timing - details: Gradual onset, Still present Inciting event(s): URI (She has had a cough productive of yellow sputum associated with some myalgias. She felt chilled a couple of days ago. She denies high fevers. She is having some shortness of breath with wheezing. She does not typically have any asthma nor emphysema and does not use inhalers at home. She went to see her primary care with this and was referred to the ER due to the degree of wheezing and prior history of heart problems.) Improved by: Rest Worsened by: Exertion, Coughing Associated symptoms: Fever, Cough, Wheezing. No: Hemoptysis, Chest pain / discomfort, Bilateral edema Similar symptoms before: Has not had sx before Recently seen: Not recently seen Review of Systems Constitutional: reports: Fever, Chills, Myalgias Nose: reports: Congestion. denies: Rhinorrhea / runny nose Throat: denies: Sore throat Cardiac: denies: Chest pain / pressure Respiratory: reports: Dyspnea, Cough, Wheezing GI: denies: Abdominal Pain, Nausea, Vomiting, Diarrhea Skin: denies: Rash, Lesions Musculoskeletal: reports: Other (she had fallen a few weeks ago and continues with right little/ring finger pains and right hip pain with walking. Requests eval of these while here.) Neurologic: reports: Generalized weakness. denies: Focal weakness, Numbness PD PAST MEDICAL HISTORY - Past Medical History Cardiovascular: Hypertension, High cholesterol, Coronary artery disease, [place] Respiratory: None, Sleep apnea, CPAP use Endocrine/Autoimmune: None GI: None HEENT: None Psych: Depression Musculoskeletal: Osteoarthritis Derm: None - Past Surgical History Past Surgical History: Yes Ortho: Knee replacement Cardiovascular: Coronary stent - Present Medications Home Medications: Ambulatory Orders Medication Instructions Recorded Confirmed Aspirin [Ecotrin] 81 mg PO DAILY 03/21/14 07/07/17 Atorvastatin [Lipitor] 40 mg PO QPM 03/21/14 07/07/17 Cholecalciferol (Vitamin D3) 2,000 units PO DAILY 03/21/14 07/07/17 [Vitamin D3] Losartan [Cozaar] 50 mg PO BID 03/21/14 07/07/17 Potassium Chloride 20 meq PO DAILY 03/21/14 07/07/17 Levothyroxine Sodium [Levoxyl] 100 mcg PO QDAC #0 07/09/17 07/07/17 Loperamide [Imodium] 2 mg PO BID #0 07/09/17 07/07/17 Rivaroxaban [Xarelto] 15 mg PO DAILY #0 07/09/17 07/07/17 Albuterol Sulf [Ventolin Hfa 2 - 3 puffs INH Q4HR PRN #1 inhaler 06/20/18 Inhaler] Benzonatate [Tessalon Perle] 100 mg PO TID PRN #20 capsule 06/20/18 Dexamethasone [Decadron] 4 mg PO DAILY #5 tablet 06/20/18 Doxycycline Hyclate 100 mg PO BID #20 capsule 06/20/18 - Allergies Allergies/Adverse Reactions: Allergies Allergy/AdvReac Type Severity Reaction Status Date / Time nortriptyline [Nortriptyline] Allergy Unknown Verified 06/20/18 17:21 sertraline HCl * Allergy Cramps Verified 06/20/18 17:21 [From Zoloft] tolterodine tartrate * Allergy Dizziness Verified 06/20/18 17:21 [From Detrol] - Social History Does the pt smoke?: No Smoking Status: Never smoker Does the pt drink ETOH?: No Does the pt have substance abuse?: No - Immunizations Immunizations are current?: No - POLST Patient has POLST: Yes PD ED PE NORMAL - Vitals Vital signs reviewed: Yes - General General: Alert and oriented X 3, No acute distress, Well developed/nourished, Other (obese) - HEENT HEENT: Ears normal, Pharynx benign - Neck Neck: Supple, no meningeal sign, No adenopathy, No JVD - Cardiac Cardiac: RRR, No murmur - Respiratory Respiratory: No respiratory distress. No: Clear bilaterally (diffuse wheezing without coarse sounds. No fine crackles. ) - Abdomen Abdomen: Normal bowel sounds, Soft, Non tender - Back Back: No CVA TTP - Derm Derm: Normal color, Warm and dry - Extremities Extremities: No deformity, No edema, No calf tenderness / cord, Other (right hip with some tenderness laterally. No pain with impaction. RIght hand with tenderness and stiffness of the PIP joints of little and ring fingers. ) - Neuro Neuro: Alert and oriented X 3, No motor deficit, Normal speech Results - Vitals Vitals: Vital Signs - 24 hr 06/20/18 06/20/18 06/20/18 17:11 20:29 21:03 Temperature 36.3 C L 37.1 C Heart Rate 72 82 81 Respiratory 18 20 20 Rate Blood Pressure 161/59 H 135/79 H O2 Saturation 96 95 06/20/18 06/20/18 22:24 23:04 Temperature 37.0 C Heart Rate 70 82 Respiratory 16 18 Rate Blood Pressure 133/74 H O2 Saturation 94 Oxygen O2 Source Room air - Labs Labs: Laboratory Tests 06/20/18 06/20/18 06/20/18 18:57 18:57 18:57 WBC 11.6 H RBC 4.84 Hgb 16.0 Hct 49.3 H MCV 101.7 H MCH 33.1 H MCHC 32.5 RDW 13.5 Plt Count 161 MPV 10.1 Neut # (Auto) 8.1 H Lymph # (Auto) 2.1 [place] # (Auto) 1.0 Eos # (Auto) 0.3 Baso # (Auto) 0.1 Absolute Nucleated RBC 0.00 Nucleated RBC % 0.0 Sodium 136 Potassium 4.3 Chloride 104 Carbon Dioxide 24 Anion Gap 8.0 BUN 27 H Creatinine 1.0 Estimated GFR (MDRD) 52 L Glucose 101 H Calcium 10.0 Magnesium 1.8 Total Bilirubin 1.2 H AST 19 ALT 22 Alkaline Phosphatase 66 Troponin I < 0.04 B-Natriuretic Peptide Total Protein 7.1 Albumin 3.9 Globulin 3.2 Albumin/Globulin Ratio 1.2 Lipase 29 06/20/18 18:57 WBC RBC Hgb Hct MCV MCH MCHC RDW Plt Count MPV Neut # (Auto) Lymph # (Auto) [place] # (Auto) Eos # (Auto) Baso # (Auto) Absolute Nucleated RBC Nucleated RBC % Sodium Potassium Chloride Carbon Dioxide Anion Gap BUN Creatinine Estimated GFR (MDRD) Glucose Calcium Magnesium Total Bilirubin AST ALT Alkaline Phosphatase Troponin I B-Natriuretic Peptide 101 H Total Protein Albumin Globulin Albumin/Globulin Ratio Lipase - Rads (name of study) chest xray Radiology: Prelim report reviewed, EMP read contemporaneously (no infiltrates), See rad report hip xray right Radiology: Prelim report reviewed (no fractures), See rad report right fingers Radiology: Prelim report reviewed (severe arthritic changes with obliteration of joint. No fractures seen per se. ), See rad report PD MEDICAL DECISION MAKING - ED course Complexity details: considered differential (Seems likely bronchitis, most often viral but could be bacterial, and would cover for that given her age and some productive cough. She is wheezy here but not hypoxic and is not in any respiratory distress. Her wheezing clears readily with a couple of nebulizer treatments and she is able to lie comfortably in even doses. Her oxygenation remains good. Her chest x-ray is clear and there is no signs of congestive heart failure nor heart related cause. She is comfortable try to go home and he r is happy with that idea. I do not see indications that necessitated admission. She seems stable for discharge.), d/w patient Departure - Departure Disposition: 01 Home, Self Care Clinical Impression: Wheezing, History of recent fall Upper respiratory infection Qualifiers: URI type: unspecified URI Qualified Code(s): J06.9 - Acute upper respiratory infection, unspecified Finger sprain Qualifiers: Encounter type: initial encounter Finger: little finger Sprain of finger site: interphalangeal joint Laterality: right Qualified Code(s): S63.636A - Sprain of interphalangeal joint of right little finger, initial encounter Contusion, hip Qualifiers: Encounter type: initial encounter Laterality: right Qualified Code(s): S70.01XA - Contusion of right hip, initial encounter Condition: Stable Record reviewed to determine appropriate education?: Yes Instructions: ED Upper Resp Infec Abx Tx Follow-Up: Yamil Valenzuela MD [Primary Care Provider] - Prescriptions: Albuterol Sulf [Ventolin Hfa Inhaler] 2 - 3 puffs INH Q4HR PRN #1 inhaler PRN Reason: Shortness Of Air/Wheezing Benzonatate [Tessalon Perle] 100 mg PO TID PRN #20 capsule PRN Reason: Cough Dexamethasone [Decadron] 4 mg PO DAILY #5 tablet Doxycycline Hyclate 100 mg PO BID #20 capsule Comments: Use albuterol inhaler 2 puffs 4 times a day for the next 7-10 days to help with the wheezing. Use an extra times as needed for wheezing. Decadron steroid for inflammation of the bronchials to decrease the wheezing and cough. Tessalon if needed for cough symptomatically. Doxycycline antibiotic twice daily for a week for the bronchitis infection. Recheck if not improving in the next couple of days and return sooner if worse. Your chest x-ray is clear without any signs of pneumonia. Your blood tests are looking good without any signs of heart injury or heart failure. Your blood count is okay.
[2018-06-20] MEDS ORDERED: IPRATROPIUM/ALBUTEROL 3 ML NEB INH STA (20:15)
[2018-06-20] MEDS ORDERED: DEXAMETHASONE 10 MG/ML VIAL PO STA (20:20)
[2018-06-20] MEDS ORDERED: ALBUTEROL NEB 2.5 MG/3 ML INH STA ×2 (20:20→21:20)
[2018-06-20] MEDS ORDERED: BENZONATATE 100 MG CAPSULE PO STA (21:20)
[2018-06-20] MEDS ORDERED: DOXYCYCLINE 100 MG TABLET PO STA (21:20)
--- NOTE | 2018-06-20 22:29 | XRAY Report ---
Reason: fall recently with hip pain still Procedure Date: 06/20/2018 Accession Number: [id number] / [id number] Procedure: XR - Hip w/Pelvis 2-3V RT CPT Code: FULL RESULT: EXAM: RIGHT HIP AND PELVIS RADIOGRAPHY EXAM DATE: 06/20/2018 09:57 PM. CLINICAL HISTORY: Fall recently with hip pain still. COMPARISON: HIP W/PELVIS 2-3V LT 12/27/2017 5:45 PM. TECHNIQUE: 1 view pelvis and 1 view hip. FINDINGS: Bones: Osteopenia. No acute fracture seen. Joints: No dislocation. Mild to moderate degenerative joint disease in the hips. Soft Tissues: Grossly unremarkable. IMPRESSION: 1. Osteopenia and degenerative changes. 2. No acute fracture or dislocation seen. RADIA
--- NOTE | 2018-06-20 22:31 | XRAY Report ---
Reason: fall recently with little/ring fingers pain Procedure Date: 06/20/2018 Accession Number: [id number] / [id number] Procedure: XR - Finger(s) RT CPT Code: FULL RESULT: EXAM: RIGHT FOURTH AND FIFTH DIGIT RADIOGRAPHY EXAM DATE: 06/20/2018 09:57 PM. CLINICAL HISTORY: Fall recently with little/ring fingers pain. COMPARISON: None. TECHNIQUE: 3 views. FINDINGS: Bones: Osteopenia. No acute fracture seen. Joints: No dislocation. Severe degenerative joint disease in the interphalangeal joints. Soft Tissues: Mild soft tissue swelling. IMPRESSION: 1. Osteopenia and degenerative changes. 2. No acute fracture or dislocation seen. RADIA
[2018-06-20 23:05] VITALS: BP 133/74
== END 2018-06-20 23:17 | disposition home or self-care (01) ==
LOC: ED 16:57
DX: J40 Bronchitis, not specified as acute or chronic (principal); J06.9 Acute upper respiratory infection, unspecified; S63.636A Sprain of interphalangeal joint of right little finger, initial encounter; S70.01XA Contusion of right hip, initial encounter; W19.XXXA Unspecified fall, initial encounter; M19.041 Primary osteoarthritis, right hand; M16.11 Unilateral primary osteoarthritis, right hip; M85.89 Other specified disorders of bone density and structure, multiple sites; I10 Essential (primary) hypertension; Z79.01 Long term (current) use of anticoagulants; Z79.82 Long term (current) use of aspirin
CPT/HCPCS: 36415; 71046; 73140; 73502; 80053; 83690; 83735; 83880; 84484; 85025; 94640; 99283; A9270

== ENCOUNTER 2018-06-21 17:54 | Outpatient (CLI) | payer MEDICARE, OTHER | END 2018-06-21 17:55 | disposition home or self-care (01) | LOC: EMS 17:54 | PROVIDERS: ATTEND Surgery | DX: R06.02 Shortness of breath (principal); R06.2 Wheezing; R25.1 Tremor, unspecified; R06.82 Tachypnea, not elsewhere classified | CPT/HCPCS: A0425; A0427 ==

== ENCOUNTER 2018-06-21 18:46 | Emergency (ER) | payer MEDICARE, OTHER ==
[2018-06-21 19:35] LABS: BASOPHILS % (AUTO) 0.1 %; HGB - HEMOGLOBIN 15.5 g/dL (12.0-16.0); LYMPHOCYTES # (AUTO) 1.2 10^3/uL (1.5-3.5); MEAN CORPUSCULAR HEMOGLOBIN 33.2 pg (27.0-31.0); MEAN CORPUSCULAR HGB CONC 32.6 g/dL (32.0-36.0); MEAN CORPUSCULAR VOLUME 102.1 fL (81.0-99.0); MEAN PLATELET VOLUME 10.3 fL (7.9-10.8); MONOCYTES # (AUTO) 0.5 10^3/uL (0.0-1.0); MONOCYTES % (AUTO) 3.5 %; NEUTROPHILS # (AUTO) 13.2 10^3/uL (1.5-6.6); NEUTROPHILS % (AUTO) 88.4 %; PLT - PLATELET COUNT 183 10^3/uL (130-450); RED BLOOD COUNT 4.67 10^6/uL (4.20-5.40); RED CELL DISTRIBUTION WIDTH 13.4 % (12.0-15.0)
[2018-06-21 19:46] LABS: ALBUMIN 3.9 g/dL (3.2-5.5); ALBUMIN/GLOBULIN RATIO 1.2 (1.0-2.2); BILIRUBIN,TOTAL 0.9 mg/dL (0.2-1.0); CALCIUM 10.7 mg/dL (8.5-10.3); CREATININE 1.2 mg/dL (0.4-1.0); TOTAL PROTEIN 7.2 g/dL (6.7-8.2)
[2018-06-21 20:35] VITALS: BP 172/123
--- NOTE | 2018-06-21 21:09 | ED Physician Documentation ---
PD HPI DYSPNEA - Stated complaint Stated Complaint: SOA - Chief complaint Chief Complaint: Resp - History obtained from History obtained from: Patient, Family - History of Present Illness Timing - onset: Other (88-year-old woman with history of atrial fibrillation was seen last night for what sounds like bronchitis. Had a clear chest x-ray, negative BNP and fairly unremarkable labs. She was discharged on steroids, inhaler, cough medicine, and doxycycline. Today after using the inhaler for the first time she started shaking and shivering and she became very anxious and had palpitations. All that was short-lived and now feels back to normal.) Review of Systems Constitutional: denies: Fever, Chills Cardiac: reports: Palpitations. denies: Chest pain / pressure Respiratory: reports: Dyspnea, Cough GI: denies: Abdominal Pain PD PAST MEDICAL HISTORY - Past Medical History Cardiovascular: Hypertension, High cholesterol, Coronary artery disease, [place] Respiratory: None, Sleep apnea, CPAP use Endocrine/Autoimmune: None GI: None HEENT: None Psych: Depression Musculoskeletal: Osteoarthritis Derm: None - Past Surgical History Past Surgical History: Yes Ortho: Knee replacement Cardiovascular: Coronary stent - Present Medications Home Medications: Ambulatory Orders Medication Instructions Recorded Confirmed Aspirin [Ecotrin] 81 mg PO DAILY 03/21/14 07/07/17 Atorvastatin [Lipitor] 40 mg PO QPM 03/21/14 07/07/17 Cholecalciferol (Vitamin D3) 2,000 units PO DAILY 03/21/14 07/07/17 [Vitamin D3] Losartan [Cozaar] 50 mg PO BID 03/21/14 07/07/17 Potassium Chloride 20 meq PO DAILY 03/21/14 07/07/17 Levothyroxine Sodium [Levoxyl] 100 mcg PO QDAC #0 07/09/17 07/07/17 Loperamide [Imodium] 2 mg PO BID #0 07/09/17 07/07/17 Rivaroxaban [Xarelto] 15 mg PO DAILY #0 07/09/17 07/07/17 Albuterol Sulf [Ventolin Hfa 2 - 3 puffs INH Q4HR PRN #1 inhaler 06/20/18 Inhaler] Benzonatate [Tessalon Perle] 100 mg PO TID PRN #20 capsule 06/20/18 Dexamethasone [Decadron] 4 mg PO DAILY #5 tablet 06/20/18 Doxycycline Hyclate 100 mg PO BID #20 capsule 06/20/18 - Allergies Allergies/Adverse Reactions: Allergies Allergy/AdvReac Type Severity Reaction Status Date / Time nortriptyline [Nortriptyline] Allergy Unknown Verified 06/20/18 17:21 sertraline HCl * Allergy Cramps Verified 06/20/18 17:21 [From Zoloft] tolterodine tartrate * Allergy Dizziness Verified 06/20/18 17:21 [From Detrol] - Social History Does the pt smoke?: No Smoking Status: Never smoker Does the pt drink ETOH?: No Does the pt have substance abuse?: No - Immunizations Immunizations are current?: No - POLST Patient has POLST: Yes PD ED PE NORMAL - Vitals Vital signs reviewed: Yes - General General: Alert and oriented X 3, No acute distress - HEENT HEENT: PERRL, EOMI - Neck Neck: Supple, no meningeal sign, No bony TTP - Cardiac Cardiac: Other (Irregularly irregular without murmur) - Respiratory Respiratory: No respiratory distress, Other (Audible wheezing) - Extremities Extremities: No edema, No calf tenderness / cord - Neuro Neuro: Alert and oriented X 3, Normal speech Results - Vitals Vitals: Vital Signs - 24 hr 06/21/18 06/21/18 18:48 20:34 Temperature 36.6 C Heart Rate 87 91 Respiratory 18 16 Rate Blood Pressure 98/56 L 172/123 H O2 Saturation 96 97 Oxygen O2 Source Nasal cannula - EKG (time done) 1910 Rate: Rate (enter#) (87) Rhythm: Atrial fibrillation [place]: Normal QRS: Normal Ischemia: Normal ST segments Computer interpretation: Agree with computer - Labs Labs: Laboratory Tests 06/21/18 06/21/18 06/21/18 19:29 19:29 19:29 WBC 15.0 H RBC 4.67 Hgb 15.5 Hct 47.7 H MCV 102.1 H MCH 33.2 H MCHC 32.6 RDW 13.4 Plt Count 183 MPV 10.3 Neut # (Auto) 13.2 H Lymph # (Auto) 1.2 [place] # (Auto) 0.5 Eos # (Auto) 0.0 Baso # (Auto) 0.0 Absolute Nucleated RBC 0.00 Nucleated RBC % 0.0 Sodium 135 Potassium 4.0 Chloride 100 L Carbon Dioxide 21 Anion Gap 14.0 H BUN 30 H Creatinine 1.2 H Estimated GFR (MDRD) 42 L Glucose 232 H Calcium 10.7 H Total Bilirubin 0.9 AST 33 ALT 21 Alkaline Phosphatase 62 Troponin I < 0.04 Total Protein 7.2 Albumin 3.9 Globulin 3.3 Albumin/Globulin Ratio 1.2 Lipase 21 L PD MEDICAL DECISION MAKING - ED course ED course: This is an 88-year-old woman history of bronchitis treated last night, who had a shaky episode after using albuterol tonight. Labs were repeated. Leukocytosis is worse but she is on steroids. A little more dehydrated, and oral fluid intake was encouraged. She very much wanted to go home and felt relieved that the likely diagnosis and explanation for her symptoms was the albuterol. I discussed with her that she is still wheezing and it may be worthwhile to use the inhaler noting that the side effects would be short-lived and not dangerous. Departure - Departure Disposition: 01 Home, Self Care Clinical Impression: Bronchitis Atrial fibrillation Qualifiers: Atrial fibrillation type: chronic Qualified Code(s): I48.2 - Chronic atrial fibrillation Condition: Good Record reviewed to determine appropriate education?: Yes Instructions: ED Bronchitis Asthmatic Comments: As discussed, you are still wheezing C may find it worthwhile to use the inhaler noting that you may still have shaky and jittery episodes with it but they should be short-lived and I promised they are not dangerous. Return if worse.
== END 2018-06-21 21:39 | disposition home or self-care (01) ==
LOC: EDUNIT# → ED 18:46
DX: J40 Bronchitis, not specified as acute or chronic (principal); E86.0 Dehydration; I48.2 Chronic atrial fibrillation; Z79.01 Long term (current) use of anticoagulants; I10 Essential (primary) hypertension; Z79.82 Long term (current) use of aspirin
CPT/HCPCS: 36415; 80053; 83690; 84484; 85025; 93005; 99282

== ENCOUNTER 2018-07-19 09:47 | Outpatient (CLI) | payer MEDICARE ==
[2018-07-19 17:56] LABS: HGB - HEMOGLOBIN 15.6 g/dL (12.0-16.0); MEAN CORPUSCULAR HEMOGLOBIN 33.6 pg (27.0-31.0); MEAN CORPUSCULAR HGB CONC 32.6 g/dL (32.0-36.0); MEAN CORPUSCULAR VOLUME 103.2 fL (81.0-99.0); MEAN PLATELET VOLUME 10.5 fL (7.9-10.8); RED BLOOD COUNT 4.64 10^6/uL (4.20-5.40); RED CELL DISTRIBUTION WIDTH 13.3 % (12.0-15.0); WHITE BLOOD COUNT 7.5 x10^3/uL (4.8-10.8)
[2018-07-19 18:19] LABS: ALBUMIN 3.8 g/dL (3.2-5.5); ALBUMIN/GLOBULIN RATIO 1.3 (1.0-2.2); ALKALINE PHOSPHATASE 67 IU/L (42-121); ALT ALANINE AMINOTRANSFERASE 24 IU/L (10-60); AST ASPARTATE AMINOTRANSFERASE 22 IU/L (10-42); BUN - BLOOD UREA NITROGEN 24 mg/dL (6-20); CALCIUM 9.9 mg/dL (8.5-10.3); CARBON DIOXIDE - CO2 26 mmol/L (21-32); CHLORIDE 106 mmol/L (101-111); CHOL/HDL RATIO 3.4 (<4.4); CHOLESTEROL 145 mg/dL; CREATININE 1.2 mg/dL (0.4-1.0); GFR - MDRD 42 (>89); GLUCOSE 139 mg/dL (70-100); HDL CHOLESTEROL 43 mg/dL; LDL CHOLESTEROL,CALCULATED 79 mg/dL; LDL/HDL RATIO 1.8 (<4.4); SODIUM 138 mmol/L (135-145); TOTAL PROTEIN 6.8 g/dL (6.7-8.2); VLDL CHOLESTEROL 23 mg/dL
== END 2018-07-19 09:48 | disposition home or self-care (01) ==
LOC: LAB.F 09:47
PROVIDERS: ATTEND Internal Medicine
DX: E78.5 Hyperlipidemia, unspecified (principal); E03.9 Hypothyroidism, unspecified
CPT/HCPCS: 36415; 80053; 80061; 83721; 84443; 85025; 85027

== ENCOUNTER 2018-12-15 19:24 | Outpatient (CLI) | payer MEDICARE | END 2018-12-15 19:25 | disposition EMS.NT | LOC: EMS 19:24 | PROVIDERS: ATTEND Surgery | DX: M25.511 Pain in right shoulder (principal); W18.39XA Other fall on same level, initial encounter; Y93.9 Activity, unspecified; Y92.008 Other place in unspecified non-institutional (private) residence as the place of occurrence of the external cause ==

== ENCOUNTER 2018-12-21 14:28 | Outpatient (CLI) | payer MEDICARE ==
--- NOTE | 2018-12-22 09:54 | XRAY Report ---
Reason: PAIN IN LEFT HIP M25.552 Procedure Date: 12/21/2018 Accession Number: [id number] / [id number] Procedure: XRS - Hip w/Pelvis 2-3V LT CPT Code: FULL RESULT: EXAM: PELVIS AND LEFT HIP RADIOGRAPHY EXAM DATE: 12/21/2018 03:32 PM HISTORY: PAIN IN LEFT HIP M25. 552. COMPARISON: 06/20/2018 TECHNIQUE: Single frontal view of the pelvis and frogleg lateral view of the LEFT hip, 2 views total FINDINGS: Pelvis: The pelvic ring is intact. Moderate degenerative arthritis at the SI joints. Moderate chronic pubic symphysitis. LEFT hip: Mild joint space narrowing. Mild osteophyte formation. Right hip also has mild joint space narrowing and moderate osteophyte formation. IMPRESSION: Mild osteoarthritis of the left hip, similar to the previous exam. Mild to moderate osteoarthritis of the right hip. Moderate SI joint degenerative arthritis.
--- NOTE | 2018-12-22 09:56 | XRAY Report ---
Reason: PAIN IN RIGHT SHOULDER M25.511 Procedure Date: 12/21/2018 Accession Number: [id number] / [id number] Procedure: XRS - Shoulder 2 View RT CPT Code: FULL RESULT: EXAM: RIGHT SHOULDER RADIOGRAPHY EXAM DATE: 12/21/2018 03:32 PM HISTORY: Fall 1 week prior. Pain. COMPARISON: None. TECHNIQUE: 3 Views FINDINGS: Glenohumeral Joint: Grossly intact. There appears to be chondrocalcinosis. AC Joint: Limited visualization. Probable mild to moderate degenerative arthritis. No apparent fracture or dislocation. Intact visualized portions of the scapula. IMPRESSION: Chondrocalcinosis. Degenerative arthritis of the AC joint. No fracture or dislocation. RADIA
== END 2018-12-21 14:29 | disposition home or self-care (01) ==
LOC: DI.S 14:28
PROVIDERS: ATTEND Internal Medicine
DX: M16.0 Bilateral primary osteoarthritis of hip (principal); M47.9 Spondylosis, unspecified; M19.011 Primary osteoarthritis, right shoulder; M11.211 Other chondrocalcinosis, right shoulder

== ENCOUNTER 2019-01-02 | Outpatient (CLI) | payer MEDICARE | END 2019-01-02 13:51 | disposition home or self-care (01) | DX: G47.33 Obstructive sleep apnea (adult) (pediatric) (principal) | CPT/HCPCS: 99203; G0463; 99212 ==

== ENCOUNTER 2019-03-24 15:39 | Outpatient (CLI) | payer MEDICARE | END 2019-03-24 15:40 | disposition EMS.NT | LOC: EMS 15:39 | PROVIDERS: ATTEND Surgery | DX: R51 Headache (principal); M25.559 Pain in unspecified hip; W18.39XA Other fall on same level, initial encounter; Y92.008 Other place in unspecified non-institutional (private) residence as the place of occurrence of the external cause; Z79.01 Long term (current) use of anticoagulants ==

== ENCOUNTER 2019-05-01 21:53 | Outpatient (CLI) | payer MEDICARE | END 2019-05-01 21:54 | disposition critical access hospital (66) | LOC: EMS 21:53 | PROVIDERS: ATTEND Surgery | DX: S09.93XA Unspecified injury of face, initial encounter (principal); W07.XXXA Fall from chair, initial encounter; Y92.008 Other place in unspecified non-institutional (private) residence as the place of occurrence of the external cause; M25.511 Pain in right shoulder; R42 Dizziness and giddiness; Z79.01 Long term (current) use of anticoagulants | CPT/HCPCS: A0425; A0427 ==

== ENCOUNTER 2019-05-01 22:26 | Emergency (ER) | payer MEDICARE ==
[2019-05-01] MEDS ORDERED: ACETAMINOPHEN 325 MG TABLET PO STA (22:40)
[2019-05-01 22:48] LABS: BASOPHILS # (AUTO) 0.1 10^3/uL (0.0-0.1); BASOPHILS % (AUTO) 0.6 %; EOSINOPHILS # (AUTO) 0.2 10^3/uL (0.0-0.7); HGB - HEMOGLOBIN 16.7 g/dL (12.0-16.0); LYMPHOCYTES % (AUTO) 32.6 %; MEAN CORPUSCULAR HEMOGLOBIN 33.5 pg (27.0-31.0); MEAN CORPUSCULAR HGB CONC 33.3 g/dL (32.0-36.0); MEAN CORPUSCULAR VOLUME 100.6 fL (81.0-99.0); MEAN PLATELET VOLUME 12.1 fL (7.9-10.8); MONOCYTES # (AUTO) 0.8 10^3/uL (0.0-1.0); MONOCYTES % (AUTO) 8.7 %; NEUTROPHILS # (AUTO) 5.2 10^3/uL (1.5-6.6); NEUTROPHILS % (AUTO) 55.6 %; PLT - PLATELET COUNT 187 10^3/uL (130-450); RED BLOOD COUNT 4.98 10^6/uL (4.20-5.40); RED CELL DISTRIBUTION WIDTH 12.7 % (12.0-15.0); WHITE BLOOD COUNT 9.3 x10^3/uL (4.8-10.8)
[2019-05-01 23:00] LABS: ALBUMIN 3.5 g/dL (3.2-5.5); ALBUMIN/GLOBULIN RATIO 1.1 (1.0-2.2); BILIRUBIN,TOTAL 0.7 mg/dL (0.2-1.0); CALCIUM 10.9 mg/dL (8.5-10.3); CREATININE 1.3 mg/dL (0.4-1.0); MAGNESIUM 1.8 mg/dL (1.7-2.8); TOTAL PROTEIN 6.6 g/dL (6.7-8.2)
--- NOTE | 2019-05-01 23:22 | XRAY Report ---
Reason: fall with injury Procedure Date: 05/01/2019 Accession Number: [id number] / [id number] Procedure: XR - Hip w/Pelvis 2-3V LT CPT Code: Final Report FULL RESULT: EXAM: LEFT HIP RADIOGRAPHY EXAM DATE: 05/01/2019 10:52 PM HISTORY: Fall with injury. Left hip pain. COMPARISONS: HIP W/PELVIS 2-3V LT 12/21/2018 3:36 PM. TECHNIQUE: 2 views. FINDINGS: Bones: Osteopenia is present. No fractures or bone lesion. Joints: No dislocation. Mild bilateral hip degenerative joint disease. Moderate bilateral sacroiliac degenerative joint disease. Moderate pubic symphysis sclerosis with mild osteophytes. Soft Tissues: Left common iliac artery calcifications. IMPRESSION: Osteopenia. No fracture on x-ray imaging. See above. Note: Osteopenia can limit detection of trabecular fracture. If the patient cannot ambulate, recommend MRI hip to exclude occult fracture. RADIA
--- NOTE | 2019-05-01 23:47 | CT Report ---
Reason: fall, struck head; on Xarelto Procedure Date: 05/01/2019 Accession Number: [id number] / [id number] Procedure: CT - HEAD WO CPT Code: Final Report FULL RESULT: EXAM: CT HEAD EXAM DATE: 05/01/2019 11:06 PM. CLINICAL HISTORY: Fall, struck head; on Xarelto. COMPARISON: CERVICAL SPINE W/O 05/01/2019 11:02 PM CERVICAL SPINE W/O 12/29/2016 2:53 PM HEAD W/O 12/29/2016 2:53 PM. TECHNIQUE: Multiaxial CT images were obtained from the foramen magnum to the vertex. Reformats: Sagittal and coronal. IV contrast: None. In accordance with CT protocol optimization, one or more of the following dose reduction techniques were utilized for this exam: automated exposure control, adjustment of mA and/or KV based on patient size, or use of iterative reconstructive technique. FINDINGS: Parenchyma: No intraparenchymal hemorrhage. No evidence of mass, midline shift, or CT findings of infarction. Garcia-white differentiation is distinct. Moderate diffuse parenchymal loss. Extensive periventricular and deep white matter hypoattenuation, statistically most likely representing chronic microangiopathic changes. Extraaxial Spaces: Normal for age. No subdural or epidural collections identified. Ventricles: Normal in size and position. Sinuses and Orbits: Imaged paranasal sinuses, orbits, and mastoids show no significant abnormality. Bones: No evidence of fracture or calvarial defect. Other: None. IMPRESSION: 1. No acute intracranial findings. 2. Moderate diffuse parenchymal volume loss. 3. Extensive chronic microangiopathic white matter changes. RADIA
--- NOTE | 2019-05-01 23:54 | CT Report ---
Reason: fall and struck head; on Xarelto; some neck pain Procedure Date: 05/01/2019 Accession Number: [id number] / [id number] Procedure: CT - CERVICAL SPINE WO CPT Code: Final Report FULL RESULT: EXAM: CT CERVICAL SPINE WITHOUT CONTRAST DATE: 05/01/2019 11:06 PM. HISTORY: Fall and struck head; on Xarelto; some neck pain. COMPARISONS: None. TECHNIQUE: Thin-section axial images were acquired of the cervical spine without contrast. Post-processing: Coronal and sagittal reformats. Other: None. In accordance with CT protocol optimization, one or more of the following dose reduction techniques were utilized for this exam: automated exposure control, adjustment of mA and/or KV based on patient size, or use of iterative reconstructive technique. FINDINGS: Alignment: No scoliosis or spondylolisthesis. Grade 1 anterolisthesis of C7 on T1 measuring 2 mm. Craniovertebral junction: Intact. Advanced degenerative changes at the atlantodental articulation. Soft tissue calcifications about the dens suggestive of calcium pyrophosphate deposition disease (CPDD). Bones: No fracture or bone lesion. Interspace Levels/Facets: Advanced degenerative disk disease at C4-C5, C5-C6, and C6-C7. Moderate to advanced multilevel facet joint arthropathy. Moderate to advanced bilateral neural foraminal stenosis at C3-C4. Moderate to severe right neural foraminal stenosis at C4-C5. Moderate bilateral neural foraminal stenosis at C5-C6. Musculature: No significant atrophy. Other: No prevertebral soft tissue swelling. The lung apices are clear. Extensive atherosclerotic plaquing of the aortic arch. IMPRESSION: 1. No acute fractures or dislocations. 2. Advanced degenerative disease at C4 through C7. 3. Multilevel facet joint arthropathy and neural foraminal stenoses as detailed in the finding section of the report. 4. Grade 1 anterolisthesis of C7 on T1. RADIA
[2019-05-02 01:58] LABS: BILIRUBIN,URINE NEGATIVE (NEGATIVE); GLUCOSE, URINE (UA) NEGATIVE (NEGATIVE); KETONES,URINE (UA) NEGATIVE (NEGATIVE); LEUKOCYTE ESTERASE, URINE NEGATIVE (NEGATIVE); NITRITE,URINE POSITIVE (NEGATIVE); OCCULT BLOOD,URINE NEGATIVE (NEGATIVE); PROTEIN,URINE NEGATIVE (NEGATIVE); UROBILINOGEN,URINE 1 (NORMAL) E.U./dL (NORMAL)
[2019-05-02 02:01] LABS: CLARITY,URINE SL. CLOUDY (CLEAR)
[2019-05-02 02:08] LABS: BACTERIA,URINE Many /HPF (None Seen); RBC,URINE None Seen /HPF (0-5); SQUAMOUS EPITHELIAL CELL,UR FEW Squamous (<= Few)
[2019-05-02] MEDS ORDERED: cephALEXin 250 MG CAPSULE PO STA (02:36)
--- NOTE | 2019-05-02 03:03 | ED Physician Documentation ---
PD HPI Fall - Stated complaint Stated Complaint: GLF - Chief complaint Chief Complaint: Trauma Hd/Nk - History obtained from History obtained from: Patient, Family, EMS - History of Present Illness Mechanism of injury: Tripped, Lost balance Fall distance: Standing position (She got up from her chair and states her feet stumbled over an object and she fell forward striking her face and also the left hip. She did not have any loss of consciousness. She did subsequently notice some pain in the lower neck. She is on a blood thinner so there is concern for bleeding. She was brought in for evaluation.) Where injury occurred: Home Timing - onset: Today (just [employer]) Injury(ies) location: Neck, Left Lower Extremity (hip laterally). No: Head, Chest, Abdomen Associated symptoms: Neck pain. No: LOC, AMS, Weakness, Paresthesias, Nausea / vomiting Worsens with: Palpation Contributing factors: Anticoagulated. No: Intoxicated Similar symptoms before: Has not had sx before (She states she has a little unstable with walking and uses a walker or cane) Recently seen: Not recently seen Review of Systems Constitutional: denies: Fever Nose: denies: Rhinorrhea / runny nose, Congestion Throat: denies: Dental pain / toothache, Sore throat Respiratory: denies: Cough GI: denies: Vomiting, Diarrhea : denies: Dysuria Skin: denies: Abrasion (s), Laceration (s) Neurologic: denies: Focal weakness, Numbness, Altered mental status, Headache, LOC PD PAST MEDICAL HISTORY - Past Medical History Cardiovascular: Hypertension, High cholesterol, Coronary artery disease, [place] Respiratory: None, Sleep apnea, CPAP use Endocrine/Autoimmune: None GI: None HEENT: None Psych: Depression Musculoskeletal: Osteoarthritis Derm: None - Past Surgical History Past Surgical History: Yes Ortho: Knee replacement Cardiovascular: Coronary stent - Present Medications Home Medications: Ambulatory Orders Medication Instructions Recorded Confirmed Aspirin [Ecotrin] 81 mg PO DAILY 03/21/14 07/07/17 Atorvastatin [Lipitor] 40 mg PO QPM 03/21/14 07/07/17 Cholecalciferol (Vitamin D3) 2,000 units PO DAILY 03/21/14 07/07/17 [Vitamin D3] Losartan [Cozaar] 50 mg PO BID 03/21/14 07/07/17 Potassium Chloride 20 meq PO DAILY 03/21/14 07/07/17 Levothyroxine Sodium [Levoxyl] 100 mcg PO QDAC #0 07/09/17 07/07/17 Loperamide [Imodium] 2 mg PO BID #0 07/09/17 07/07/17 Rivaroxaban [Xarelto] 15 mg PO DAILY #0 07/09/17 07/07/17 Citalopram [CeleXA] 05/01/19 Cephalexin [Keflex] 500 mg PO TID #20 capsule 05/02/19 - Allergies Allergies/Adverse Reactions: Allergies Allergy/AdvReac Type Severity Reaction Status Date / Time nortriptyline [Nortriptyline] Allergy Unknown Verified 06/20/18 17:21 sertraline HCl * Allergy Cramps Verified 06/20/18 17:21 [From Zoloft] tolterodine tartrate * Allergy Dizziness Verified 06/20/18 17:21 [From Detrol] - Social History Does the pt smoke?: No Smoking Status: Never smoker Does the pt drink ETOH?: No Does the pt have substance abuse?: No - Immunizations Immunizations are current?: No - POLST Patient has POLST: Yes PD ED PE NORMAL - Vitals Vital signs reviewed: Yes - General General: Alert and oriented X 3, No acute distress, Well developed/nourished - HEENT HEENT: Moist mucous membranes, Pharynx benign, Other (Some mild tenderness without deformity along the bridge of the nose and the forehead. Eyes have extraocular motion without any pain. The left lower neck area shows some muscular tenderness without any obvious deformity.) - Neck Neck: Supple, no meningeal sign, No adenopathy - Cardiac Cardiac: RRR, No murmur - Respiratory Respiratory: Clear bilaterally - Abdomen Abdomen: Normal bowel sounds, Soft, Non tender, Non distended, Other (obese) - Back Back: No CVA TTP - Derm Derm: Normal color, Warm and dry - Extremities Extremities: Other (The wrists and arms have good range of motion without any tenderness or deformity. The left lateral hip shows some tenderness along the greater tubercle. There is no tenderness at the ball of the joint nor any pain with impaction or distraction. The lower back is not tender.) - Neuro Neuro: Alert and oriented X 3, No motor deficit, Normal speech Eye Opening: Spontaneous Motor: Obeys Commands Verbal: Oriented GCS Score: 15 - Psych Psych: Normal mood, Normal affect Results - Vitals Vitals: Oxygen O2 Source Room air - Labs Labs: Laboratory Tests 05/01/19 05/01/19 05/02/19 22:41 22:41 01:47 WBC 9.3 RBC 4.98 Hgb 16.7 H Hct 50.1 H MCV 100.6 H MCH 33.5 H MCHC 33.3 RDW 12.7 Plt Count 187 MPV 12.1 H Neut # (Auto) 5.2 Lymph # (Auto) 3.0 [place] # (Auto) 0.8 Eos # (Auto) 0.2 Baso # (Auto) 0.1 Absolute Nucleated RBC 0.00 Nucleated RBC % 0.0 Sodium 140 Potassium 4.8 Chloride 107 Carbon Dioxide 25 Anion Gap 8.0 BUN 27 H Creatinine 1.3 H Estimated GFR (MDRD) 39 L Glucose 116 H Calcium 10.9 H Magnesium 1.8 Total Bilirubin 0.7 AST 25 ALT 30 Alkaline Phosphatase 57 Total Protein 6.6 L Albumin 3.5 Globulin 3.1 Albumin/Globulin Ratio 1.1 Lipase 43 Urine Color YELLOW Urine Clarity SL. CLOUDY Urine pH 6.0 Ur Specific [place] >=1.030 H Urine Protein NEGATIVE Urine Glucose (UA) NEGATIVE Urine Ketones NEGATIVE Urine Occult Blood NEGATIVE Urine Nitrite POSITIVE H Urine Bilirubin NEGATIVE Urine Urobilinogen 1 (NORMAL) Ur Leukocyte Esterase NEGATIVE Urine RBC None Seen Urine WBC 0-3 Ur Squamous Epith Cells FEW Squamous Urine Bacteria Many H Ur Microscopic Review INDICATED Urine Culture Comments INDICATED - Rads (name of study) head and cervical CT Radiology: Prelim report reviewed (No intracranial bleeding or fractures or signs of acute injury. The neck did not have any fractures but did show some arthritis.), See rad report PD MEDICAL DECISION MAKING - ED course Complexity details: reviewed results, considered differential (Sounds like a mechanical fall if she was getting up and then fell forward. She did not really have much injury to the head with just a little tenderness around the nose. She is on blood thinner however. She had a little soreness with range of motion of the neck. Head and neck CT scans did not show acute abnormality. She was little sore on the left hip and an x-ray there did not show any fractures. Basic blood tests appeared normal. There was signs of a bladder infection on urine testing.), d/w patient Departure - Departure Disposition: 01 Home, Self Care Clinical Impression: Anticoagulant long-term use Fall from slip, trip, or stumble Qualifiers: Encounter type: initial encounter Qualified Code(s): W01.0XXA - Fall on same level from slipping, tripping and stumbling without subsequent striking against object, initial encounter UTI (urinary tract infection) Qualifiers: Urinary tract infection type: acute cystitis Hematuria presence: without hematuria Qualified Code(s): N30.00 - Acute cystitis without hematuria Hip strain Qualifiers: Encounter type: initial encounter Laterality: left Qualified Code(s): S76.012A - Strain of muscle, fascia and tendon of left hip, initial encounter Condition: Stable Record reviewed to determine appropriate education?: Yes Prescriptions: Cephalexin [Keflex] 500 mg PO TID #20 capsule Comments: The scans of your head and neck are normal without any signs of bleeding or fractures. You may still be sore around the neck from a strain of the muscles from falling. Your hip area appears normal on x-ray as well but it may still be sore as well for several days. Activity as able based on comfort. Stay well- hydrated. Tylenol if needed for pains. Your blood tests appear normal with normal blood count and electrolytes and kidney function. Your heart rhythm shows the fibrillation but it is rate controlled. Your urine sample shows signs of a mild infection and we will go with some cepha lexin antibiotic as directed for a week. Continue usual medications. Return if other problems such as fevers or vomiting or increased weakness etc. Discharge Date/Time: 05/02/19 03:15
[2019-05-02 03:15] VITALS: BP 130/79
== END 2019-05-02 03:15 | disposition home or self-care (01) ==
LOC: EDUNIT# → ED 22:26
DX: S76.012A Strain of muscle, fascia and tendon of left hip, initial encounter (principal); R51 Headache; W01.0XXA Fall on same level from slipping, tripping and stumbling without subsequent striking against object, initial encounter; Y93.89 Activity, other specified; Y92.009 Unspecified place in unspecified non-institutional (private) residence as the place of occurrence of the external cause; N30.00 Acute cystitis without hematuria; M50.321 Other cervical disc degeneration at C4-C5 level; M48.02 Spinal stenosis, cervical region; M47.812 Spondylosis without myelopathy or radiculopathy, cervical region; Z79.01 Long term (current) use of anticoagulants; Z79.82 Long term (current) use of aspirin; I10 Essential (primary) hypertension; I25.10 Atherosclerotic heart disease of native coronary artery without angina pectoris; I25.2 Old myocardial infarction; Z95.5 Presence of coronary angioplasty implant and graft
CPT/HCPCS: 36415; 70450; 72125; 73502; 80053; 81001; 83690; 83735; 85025; 87086; 87181; 93005; 99284; A9270; 81003

== ENCOUNTER 2019-05-25 11:30 | Outpatient (CLI) | payer MEDICARE ==
[2019-05-25 17:52] LABS: BASOPHILS # (AUTO) 0.1 10^3/uL (0.0-0.1); BASOPHILS % (AUTO) 0.5 %; EOSINOPHILS # (AUTO) 0.1 10^3/uL (0.0-0.7); EOSINOPHILS % (AUTO) 1.3 %; LYMPHOCYTES # (AUTO) 2.4 10^3/uL (1.5-3.5); LYMPHOCYTES % (AUTO) 24.7 %; MEAN CORPUSCULAR HEMOGLOBIN 32.9 pg (27.0-31.0); MEAN CORPUSCULAR HGB CONC 32.6 g/dL (32.0-36.0); MEAN PLATELET VOLUME 12.9 fL (7.9-10.8); MONOCYTES # (AUTO) 0.6 10^3/uL (0.0-1.0); MONOCYTES % (AUTO) 6.6 %; NEUTROPHILS # (AUTO) 6.4 10^3/uL (1.5-6.6); NEUTROPHILS % (AUTO) 66.4 %; PLT - PLATELET COUNT 212 10^3/uL (130-450); RED BLOOD COUNT 5.17 10^6/uL (4.20-5.40); RED CELL DISTRIBUTION WIDTH 12.5 % (12.0-15.0); WHITE BLOOD COUNT 9.7 x10^3/uL (4.8-10.8)
[2019-05-25 18:06] LABS: ALBUMIN 3.8 g/dL (3.2-5.5); ALBUMIN/GLOBULIN RATIO 1.2 (1.0-2.2); BILIRUBIN,TOTAL 0.7 mg/dL (0.2-1.0); CALCIUM 10.6 mg/dL (8.5-10.3); CREATININE 1.1 mg/dL (0.4-1.0); TOTAL PROTEIN 7.1 g/dL (6.7-8.2)
== END 2019-05-25 11:31 | disposition home or self-care (01) ==
LOC: LAB.S 11:30
PROVIDERS: ATTEND Internal Medicine
DX: E03.9 Hypothyroidism, unspecified (principal); R30.0 Dysuria
CPT/HCPCS: 36415; 80053; 81001; 84443; 85025; 87086

== ENCOUNTER 2019-05-27 18:36 | Outpatient (CLI) | payer MEDICARE | END 2019-05-27 18:37 | disposition critical access hospital (66) | LOC: EMS 18:36 | PROVIDERS: ATTEND Surgery | DX: S09.92XA Unspecified injury of nose, initial encounter (principal); W18.39XA Other fall on same level, initial encounter; Y92.019 Unspecified place in single-family (private) house as the place of occurrence of the external cause | CPT/HCPCS: A0425; A0427 ==

== ENCOUNTER 2019-05-27 19:11 | Emergency (ER) | payer MEDICARE ==
[2019-05-27] MEDS ORDERED: MORPHINE 2 MG/ML CARPUJECT IVP STA (19:27)
[2019-05-27 19:33] LABS: BASOPHILS # (AUTO) 0.1 10^3/uL (0.0-0.1); BASOPHILS % (AUTO) 0.5 %; EOSINOPHILS # (AUTO) 0.2 10^3/uL (0.0-0.7); EOSINOPHILS % (AUTO) 2.4 %; LYMPHOCYTES # (AUTO) 2.4 10^3/uL (1.5-3.5); LYMPHOCYTES % (AUTO) 24.3 %; MEAN CORPUSCULAR HEMOGLOBIN 32.9 pg (27.0-31.0); MEAN CORPUSCULAR HGB CONC 32.7 g/dL (32.0-36.0); MEAN CORPUSCULAR VOLUME 100.8 fL (81.0-99.0); MEAN PLATELET VOLUME 12.3 fL (7.9-10.8); MONOCYTES # (AUTO) 0.8 10^3/uL (0.0-1.0); MONOCYTES % (AUTO) 8.2 %; NEUTROPHILS # (AUTO) 6.2 10^3/uL (1.5-6.6); NEUTROPHILS % (AUTO) 64.3 %; PLT - PLATELET COUNT 180 10^3/uL (130-450); RED BLOOD COUNT 4.86 10^6/uL (4.20-5.40); RED CELL DISTRIBUTION WIDTH 12.4 % (12.0-15.0); WHITE BLOOD COUNT 9.7 x10^3/uL (4.8-10.8)
[2019-05-27 19:38] LABS: INR 1.3 (0.8-1.2); PT - PROTHROMBIN TIME 15.1 secs (9.9-12.6)
[2019-05-27 19:43] LABS: ALBUMIN 3.5 g/dL (3.2-5.5); ALBUMIN/GLOBULIN RATIO 1.1 (1.0-2.2); ALKALINE PHOSPHATASE 74 IU/L (42-121); ALT ALANINE AMINOTRANSFERASE 24 IU/L (10-60); AST ASPARTATE AMINOTRANSFERASE 22 IU/L (10-42); BUN - BLOOD UREA NITROGEN 22 mg/dL (6-20); CALCIUM 10.2 mg/dL (8.5-10.3); CARBON DIOXIDE - CO2 28 mmol/L (21-32); CHLORIDE 104 mmol/L (101-111); CREATININE 1.4 mg/dL (0.4-1.0); GFR - MDRD 35 (>89); GLUCOSE 133 mg/dL (70-100); LIPASE 29 U/L (22-51); SODIUM 140 mmol/L (135-145); TOTAL PROTEIN 6.7 g/dL (6.7-8.2)
--- NOTE | 2019-05-27 19:47 | ED Physician Documentation ---
PD HPI Fall - Stated complaint Stated Complaint: GLF - Chief complaint Chief Complaint: Trauma Hd/Nk - History obtained from History obtained from: Patient, EMS - History of Present Illness Mechanism of injury: Tripped Fall distance: Sitting position Where injury occurred: Home Timing - onset: How many hours ago (1) Injury(ies) location: Ear, Neck Pain level max: 6 Pain level now: 5 Quality of pain: Pain, Aching Associated symptoms: No: LOC, AMS, Amnesia, Seizures, Ear drainage, Nasal drainage, Neck pain, Weakness, Paresthesias, Dyspnea, Nausea / vomiting, Hematemesis Symptoms improve with: Rest Worsens with: Movement, Palpation Contributing factors: Anticoagulated (Plavix). No: Intoxicated Recently seen: Not recently seen - Additional information Additional information: Patient attempted to get out of her chair today, she fell forward landing on her face and injuring her right shoulder. No numbness or tingling. She states "everything hurts". No loss of consciousness. No altered mental status. Patient is a poor historian. No chest pain. No dyspnea. Review of Systems Ten Systems: 10 systems reviewed and negative Constitutional: denies: Fever, Chills Eyes: denies: Decreased vision, Photophobia Ears: denies: Ear pain Nose: denies: Epistaxis Throat: denies: Sore throat Respiratory: denies: Cough GI: denies: Abdominal Pain, Abdominal Swelling, Nausea, Vomiting, Diarrhea : denies: Dysuria Skin: denies: Rash Musculoskeletal: denies: Extremity pain Neurologic: denies: Headache PD PAST MEDICAL HISTORY - Past Medical History Past Medical History: Yes Cardiovascular: Hypertension, High cholesterol, Coronary artery disease, [place] Respiratory: None, Sleep apnea, CPAP use Endocrine/Autoimmune: None GI: None HEENT: None Psych: Depression Musculoskeletal: Osteoarthritis Derm: None - Past Surgical History Past Surgical History: Yes Ortho: Knee replacement Cardiovascular: Coronary stent - Present Medications Home Medications: Ambulatory Orders Medication Instructions Recorded Confirmed Aspirin [Ecotrin] 81 mg PO DAILY 03/21/14 07/07/17 Atorvastatin [Lipitor] 40 mg PO QPM 03/21/14 07/07/17 Cholecalciferol (Vitamin D3) 2,000 units PO DAILY 03/21/14 07/07/17 [Vitamin D3] Losartan [Cozaar] 50 mg PO BID 03/21/14 07/07/17 Potassium Chloride 20 meq PO DAILY 03/21/14 07/07/17 Levothyroxine Sodium [Levoxyl] 100 mcg PO QDAC #0 07/09/17 07/07/17 Loperamide [Imodium] 2 mg PO BID #0 07/09/17 07/07/17 Rivaroxaban [Xarelto] 15 mg PO DAILY #0 07/09/17 07/07/17 Citalopram [CeleXA] 05/01/19 Cephalexin [Keflex] 500 mg PO TID #20 capsule 05/02/19 Cephalexin [Keflex] 500 mg PO Q6H #20 capsule 05/27/19 - Allergies Allergies/Adverse Reactions: Allergies Allergy/AdvReac Type Severity Reaction Status Date / Time nortriptyline [Nortriptyline] Allergy Unknown Verified 05/27/19 19:18 sertraline HCl * Allergy Cramps Verified 05/27/19 19:18 [From Zoloft] tolterodine tartrate * Allergy Dizziness Verified 05/27/19 19:18 [From Detrol] - Social History Does the pt smoke?: No Smoking Status: Never smoker Does the pt drink ETOH?: No Does the pt have substance abuse?: No - Immunizations Immunizations are current?: No - POLST Patient has POLST: Yes PD ED PE NORMAL - Vitals Vital signs reviewed: Yes - General General: Alert and oriented X 3, No acute distress - HEENT HEENT: Moist mucous membranes, Other (TTP over the face. diffusely.) - Neck Neck: Supple, no meningeal sign - Cardiac Cardiac: RRR - Respiratory Respiratory: No respiratory distress, Clear bilaterally - Abdomen Abdomen: Soft, Non tender, Non distended - Back Back: No spinal TTP (no stepoff or deformity.) - Derm Derm: Warm and dry - Extremities Extremities: Other (TTP R shoulder. NVI. no deformity.) - Neuro Neuro: Alert and oriented X 3, precision grinder external 2-12 intact, No motor deficit, No sensory deficit, Normal speech Eye Opening: Spontaneous Motor: Obeys Commands Verbal: Oriented GCS Score: 15 - Psych Psych: Normal mood, Normal affect Results - Vitals Vitals: Vital Signs - 24 hr 05/27/19 05/27/19 05/27/19 19:18 19:24 21:20 Temperature 37.0 C 36.5 C Heart Rate 77 77 77 Respiratory 16 16 18 Rate Blood Pressure 184/96 H 184/96 H 157/102 H O2 Saturation 95 95 95 Oxygen O2 Source Room air - Labs Labs: Laboratory Tests 05/27/19 05/27/19 05/27/19 19:23 19:23 19:23 WBC 9.7 RBC 4.86 Hgb 16.0 Hct 49.0 H MCV 100.8 H MCH 32.9 H MCHC 32.7 RDW 12.4 Plt Count 180 MPV 12.3 H Neut # (Auto) 6.2 Lymph # (Auto) 2.4 [place] # (Auto) 0.8 Eos # (Auto) 0.2 Baso # (Auto) 0.1 Absolute Nucleated RBC 0.00 Nucleated RBC % 0.0 PT 15.1 H INR 1.3 H Sodium 140 Potassium 4.1 Chloride 104 Carbon Dioxide 28 Anion Gap 8.0 BUN 22 H Creatinine 1.4 H Estimated GFR (MDRD) 35 L Glucose 133 H Calcium 10.2 Total Bilirubin 1.0 AST 22 ALT 24 Alkaline Phosphatase 74 Total Protein 6.7 Albumin 3.5 Globulin 3.2 Albumin/Globulin Ratio 1.1 Lipase 29 Urine Color Urine Clarity Urine pH Ur Specific [place] Urine Protein Urine Glucose (UA) Urine Ketones Urine Occult Blood Urine Nitrite Urine Bilirubin Urine Urobilinogen Ur Leukocyte Esterase Urine RBC Urine WBC Ur Squamous Epith Cells Urine Bacteria Ur Microscopic Review Urine Culture Comments Urine Opiates Screen Ur Oxycodone Screen Urine Methadone Screen Ur Propoxyphene Screen Ur Barbiturates Screen Ur Tricyclics Screen Ur Phencyclidine Scrn Ur Amphetamine Screen U Methamphetamines Scrn U Benzodiazepines Scrn Urine Cocaine Screen U Cannabinoids Screen Ethyl Alcohol < 5.0 05/27/19 20:47 WBC RBC Hgb Hct MCV MCH MCHC RDW Plt Count MPV Neut # (Auto) Lymph # (Auto) [place] # (Auto) Eos # (Auto) Baso # (Auto) Absolute Nucleated RBC Nucleated RBC % PT INR Sodium Potassium Chloride Carbon Dioxide Anion Gap BUN Creatinine Estimated GFR (MDRD) Glucose Calcium Total Bilirubin AST ALT Alkaline Phosphatase Total Protein Albumin Globulin Albumin/Globulin Ratio Lipase Urine Color YELLOW Urine Clarity CLOUDY Urine pH 5.5 Ur Specific [place] >=1.030 H Urine Protein NEGATIVE Urine Glucose (UA) NEGATIVE Urine Ketones NEGATIVE Urine Occult Blood NEGATIVE Urine Nitrite POSITIVE H Urine Bilirubin NEGATIVE Urine Urobilinogen 1 (NORMAL) Ur Leukocyte Esterase NEGATIVE Urine RBC 0-5 Urine WBC 0-3 Ur Squamous Epith Cells FEW Squamous Urine Bacteria Many H Ur Microscopic Review INDICATED Urine Culture Comments INDICATED Urine Opiates Screen POSITIVE H Ur Oxycodone Screen NEGATIVE Urine Methadone Screen NEGATIVE Ur Propoxyphene Screen NEGATIVE Ur Barbiturates Screen NEGATIVE Ur Tricyclics Screen NEGATIVE Ur Phencyclidine Scrn NEGATIVE Ur Amphetamine Screen NEGATIVE U Methamphetamines Scrn NEGATIVE U Benzodiazepines Scrn NEGATIVE Urine Cocaine Screen NEGATIVE U Cannabinoids Screen NEGATIVE Ethyl Alcohol - Rads (name of study) head CT Radiology: Prelim report reviewed, EMP read contemporaneously, See rad report (No acute intracranial abnormality) cervical spine CT Radiology: Prelim report reviewed, EMP read contemporaneously, See rad report (No acute abnormality) maxillofacial CT Radiology: Prelim report reviewed, EMP read contemporaneously, See rad report (No acute abnormality) R shoulder xray Radiology: Prelim report reviewed, EMP read contemporaneously, See rad report (No acute abnormality) PD MEDICAL DECISION MAKING - ED course Complexity details: reviewed results, re-evaluated patient, considered differential, d/w patient ED course: No acute findings radiographically. She does have an abrasion to the nose. She is ambulating actually quite well with a walker in the emergency department. No evidence of fractures. She was given IV fluids as well. Will treat for UTI. Given Rocephin here and will place on antibiotics at home. No intracranial hemorrhage. No cervical spine fracture. Patient counseled regarding signs and symptoms for which I believe and urgent re-evaluation would be necessary. Patient with good understanding of and agreement to plan and is comfortable going home at this time This document was made in part using voice recognition software. While efforts are made to proofread this document, sound alike and grammatical errors may occur. Departure - Departure Disposition: 01 Home, Self Care Clinical Impression: Fall from ground level, Anticoagulant long-term use Nasal contusion Qualifiers: Encounter type: initial encounter Qualified Code(s): S00.33XA - Contusion of nose, initial encounter Head injury Qualifiers: Encounter type: initial encounter Qualified Code(s): S09.90XA - Unspecified injury of head, initial encounter UTI (urinary tract infection) Qualifiers: Urinary tract infection type: acute cystitis Hematuria presence: without hematuria Qualified Code(s): N30.00 - Acute cystitis without hematuria Condition: Good Instructions: ED Head Injury Closed, ED Contusion Nasal, ED UTI Cystitis Female Follow-Up: Rodney Monet MD [Primary Care Provider] - Within 1 week Prescriptions: Cephalexin [Keflex] 500 mg PO Q6H #20 capsule Comments: You can use Motrin or Tylenol as needed for pain at home. Return if you worsen. You should use a walker to help you ambulate. Take all antibiotics until gone.
--- NOTE | 2019-05-27 19:59 | XRAY Report ---
Reason: fall, R shoulder pain Procedure Date: 05/27/2019 Accession Number: [id number] / [id number] Procedure: XR - Shoulder 3 View RT CPT Code: Final Report FULL RESULT: EXAM: RIGHT SHOULDER RADIOGRAPHY EXAM DATE: 05/27/2019 07:30 PM. CLINICAL HISTORY: Fall, R shoulder pain. COMPARISON: SHOULDER 2 VIEW RT 12/21/2018 2:59 PM. TECHNIQUE: 3 views. FINDINGS: Bones: Normal. No fracture or bone lesion. Joints: The glenohumeral and acromioclavicular joints are normal. Soft tissues: The visualized hemithorax is unremarkable. No soft tissue swelling. IMPRESSION: No acute displaced fracture or malalignment in clinical setting of trauma. RADIA
--- NOTE | 2019-05-27 20:23 | CT Report ---
Reason: Neck trauma, midline tenderness Procedure Date: 05/27/2019 Accession Number: [id number] / [id number] Procedure: CT - CERVICAL SPINE WO CPT Code: Final Report FULL RESULT: EXAM: CT CERVICAL SPINE WITHOUT CONTRAST DATE: 05/27/2019 07:57 PM. HISTORY: Fall forward onto face. Neck trauma. COMPARISONS: CERVICAL SPINE W/O 05/01/2019 11:02 PM. TECHNIQUE: Thin-section axial images were acquired of the cervical spine without contrast. Post-processing: Coronal and sagittal reformats. Other: None. In accordance with CT protocol optimization, one or more of the following dose reduction techniques were utilized for this exam: automated exposure control, adjustment of mA and/or KV based on patient size, or use of iterative reconstructive technique. FINDINGS: Alignment: No scoliosis. Stable 2 mm anterolisthesis of C7 on T1. Bones: No fracture or bone lesion. Interspace Levels/Facets: C1-C2: Anterior degenerative changes. Surrounding partially calcified pannus. C2-C3: Unremarkable. C3-C4: Mild disk space narrowing. C4-C5: Severe disk space narrowing. C5-C6: Severe disk space narrowing. Posterior disk/osteophyte protrusion.. C6-C7: Severe disk space narrowing. C7-T1: Moderate disk space narrowing. Musculature: Normal. No fatty atrophy. Other: Aortic and carotid bifurcation calcification noted. The lung apices are clear. IMPRESSION: No acute abnormality or interval change. RADIA
--- NOTE | 2019-05-27 20:23 | CT Report ---
Reason: Head trauma, coagulopathy Procedure Date: 05/27/2019 Accession Number: [id number] / [id number] Procedure: CT - HEAD WO CPT Code: Final Report FULL RESULT: EXAM: CT HEAD EXAM DATE: 05/27/2019 07:58 PM. CLINICAL HISTORY: Head trauma, coagulopathy. COMPARISON: CERVICAL SPINE W/O 05/01/2019 11:02 PM. HEAD W/O 05/01/2019 11:02 PM. TECHNIQUE: Multiaxial CT images were obtained from the foramen magnum to the vertex. Reformats: Sagittal and coronal. IV contrast: None. In accordance with CT protocol optimization, one or more of the following dose reduction techniques were utilized for this exam: automated exposure control, adjustment of mA and/or KV based on patient size, or use of iterative reconstructive technique. FINDINGS: Parenchyma: Diffuse periventricular low-density white matter changes. No evidence of evolving infarction or hemorrhage. Extraaxial Spaces: Normal for age. No subdural or epidural collections identified. Ventricles: Normal in size and position. Sinuses and Orbits: Imaged paranasal sinuses, orbits, and mastoids show no significant abnormality. Bones: No evidence of fracture or calvarial defect. Other: None. IMPRESSION: 1. No acute intracranial abnormality. 2. Low-density white matter changes compatible with chronic small vessel ischemic disease. RADIA
--- NOTE | 2019-05-27 20:30 | CT Report ---
Reason: fall, facial bone pain Procedure Date: 05/27/2019 Accession Number: [id number] / [id number] Procedure: CT - MAXILLOFACIAL WO CPT Code: Final Report FULL RESULT: EXAM: CT MAXILLOFACIAL WITHOUT CONTRAST EXAM DATE: 05/27/2019 07:58 PM. CLINICAL HISTORY: Fall, facial bone pain. COMPARISONS: CERVICAL SPINE W/O 05/01/2019 11:02 PM. TECHNIQUE: Thin-section axial images were acquired of the face without contrast. Post-processing: Coronal and sagittal reformats. Other: None. In accordance with CT protocol optimization, one or more of the following dose reduction techniques were utilized for this exam: automated exposure control, adjustment of mA and/or KV based on patient size, or use of iterative reconstructive technique. FINDINGS: Soft Tissue: The infratemporal fossa and parapharyngeal spaces are unremarkable. Orbits: Symmetric and unremarkable. Bones: No fracture or bone lesion. Temporomandibular Joints: The temporomandibular joints are symmetric and normally located. Sinuses: There is mild ethmoid air cell mucosal thickening. No sinus air-fluid levels. Other: None. IMPRESSION: No facial bone fracture. RADIA
[2019-05-27 20:55] LABS: MUDS CUTOFF CONCENTRATIONS CUTOFF CONC BELOW:
[2019-05-27 20:59] LABS: BILIRUBIN,URINE NEGATIVE (NEGATIVE); GLUCOSE, URINE (UA) NEGATIVE (NEGATIVE); KETONES,URINE (UA) NEGATIVE (NEGATIVE); LEUKOCYTE ESTERASE, URINE NEGATIVE (NEGATIVE); NITRITE,URINE POSITIVE (NEGATIVE); OCCULT BLOOD,URINE NEGATIVE (NEGATIVE); PH,URINE 5.5 PH (5.0-7.5); PROTEIN,URINE NEGATIVE (NEGATIVE); UROBILINOGEN,URINE 1 (NORMAL) E.U./dL (NORMAL)
[2019-05-27 21:03] LABS: CLARITY,URINE CLOUDY (CLEAR)
[2019-05-27] MEDS ORDERED: SODIUM CHLORIDE 0.9% 500 ML IV ONE (21:08)
[2019-05-27] MEDS ORDERED: cefTRIAXone 1 GM VIAL IVP STA (21:08)
[2019-05-27 21:09] LABS: AMPHETAMINE SCREEN,URINE NEGATIVE (NEGATIVE); BENZODIAZEPINES SCREEN, URINE NEGATIVE (NEGATIVE); COCAINE SCREEN URINE NEGATIVE (NEGATIVE); METHADONE SCREEN, URINE NEGATIVE (NEGATIVE); METHAMPHETAMINES SCREEN, URINE NEGATIVE (NEGATIVE); OPIATE SCREEN, URINE POSITIVE (NEGATIVE); OXYCODONE SCREEN, URINE NEGATIVE (NEGATIVE); PROPOXYPHENE SCREEN, URINE NEGATIVE (NEGATIVE); TRICYCLIC ANTIDEPRESSANT,URINE NEGATIVE (NEGATIVE)
[2019-05-27 21:13] LABS: BACTERIA,URINE Many /HPF (None Seen); RBC,URINE 0-5 /HPF (0-5); SQUAMOUS EPITHELIAL CELL,UR FEW Squamous (<= Few)
[2019-05-27 21:21] VITALS: BP 157/102
== END 2019-05-27 22:29 | disposition home or self-care (01) ==
LOC: EDUNIT# → ED 19:11
DX: S00.33XA Contusion of nose, initial encounter (principal); S09.90XA Unspecified injury of head, initial encounter; W01.0XXA Fall on same level from slipping, tripping and stumbling without subsequent striking against object, initial encounter; Y92.009 Unspecified place in unspecified non-institutional (private) residence as the place of occurrence of the external cause; N30.00 Acute cystitis without hematuria; I10 Essential (primary) hypertension; E78.00 Pure hypercholesterolemia, unspecified; I25.10 Atherosclerotic heart disease of native coronary artery without angina pectoris; I25.2 Old myocardial infarction; Z79.82 Long term (current) use of aspirin; Z96.659 Presence of unspecified artificial knee joint; Z95.5 Presence of coronary angioplasty implant and graft; Z79.01 Long term (current) use of anticoagulants
CPT/HCPCS: 36415; 70450; 70486; 72125; 80053; 80306; 80320; 81001; 81003; 83690; 85025; 85610; 87086; 87181; 96361; 96374; 96375; 99285

== ENCOUNTER 2019-07-07 15:02 | Outpatient (CLI) | payer MEDICARE ==
[2019-07-07 17:47] LABS: BASOPHILS # (AUTO) 0.1 10^3/uL (0.0-0.1); BASOPHILS % (AUTO) 0.6 %; EOSINOPHILS # (AUTO) 0.3 10^3/uL (0.0-0.7); EOSINOPHILS % (AUTO) 2.6 %; HGB - HEMOGLOBIN 16.8 g/dL (12.0-16.0); LYMPHOCYTES % (AUTO) 27.1 %; MEAN CORPUSCULAR HEMOGLOBIN 33.1 pg (27.0-31.0); MEAN CORPUSCULAR HGB CONC 32.7 g/dL (32.0-36.0); MEAN CORPUSCULAR VOLUME 101.2 fL (81.0-99.0); MEAN PLATELET VOLUME 12.9 fL (7.9-10.8); MONOCYTES # (AUTO) 0.9 10^3/uL (0.0-1.0); MONOCYTES % (AUTO) 8.5 %; NEUTROPHILS # (AUTO) 6.6 10^3/uL (1.5-6.6); NEUTROPHILS % (AUTO) 60.7 %; PLT - PLATELET COUNT 175 10^3/uL (130-450); RED BLOOD COUNT 5.08 10^6/uL (4.20-5.40); RED CELL DISTRIBUTION WIDTH 12.7 % (12.0-15.0)
[2019-07-07 18:03] LABS: ALBUMIN 3.7 g/dL (3.2-5.5); ALBUMIN/GLOBULIN RATIO 1.2 (1.0-2.2); BILIRUBIN,TOTAL 0.7 mg/dL (0.2-1.0); CREATININE 1.1 mg/dL (0.4-1.0); TOTAL PROTEIN 6.9 g/dL (6.7-8.2)
[2019-07-07 18:08] LABS: CALCIUM 10.1 mg/dL (8.5-10.3)
== END 2019-07-07 15:03 | disposition home or self-care (01) ==
LOC: LAB.S 15:02
PROVIDERS: ATTEND Internal Medicine
DX: R53.83 Other fatigue (principal)
CPT/HCPCS: 36415; 80053; 84443; 85025

== ENCOUNTER 2019-07-17 16:14 | Outpatient (CLI) | payer MEDICARE | END 2019-07-17 16:15 | disposition EMS.NT | LOC: EMS 16:14 | PROVIDERS: ATTEND Surgery | DX: Z03.89 Encounter for observation for other suspected diseases and conditions ruled out (principal) ==

== ENCOUNTER 2019-11-20 14:13 | Outpatient (CLI) | payer MEDICARE ==
--- NOTE | 2019-11-20 14:31 | SLEEP CARE CONSULTATION ---
Information from patient questionnaire entered by Melissa Kahn. I have reviewed and concur with the information entered by Melissa Kahn. This document represents the service I personally performed and the decisions made by me, Ruben Devlin MD, [facility]. History of Present Illness Service Date and Time: 11/20/2019 1413 Previous diagnosis: Severe, Other (RDI) AHI: 52 (in 2001) Reason for follow up: other (9 month ) Equipment type: BiPAP Equipment obtained from: [facility] (in [place]) Prior sleep studies: Yes Year and Where: 2001 - [facility] in [place] Type of Sleep Study: Polysomnography HPI additional information: The patient returns with a granddaughter. She was originally diagnosed with severe LILIANA in 2001 at [facility]. Her BiPAP broke last summer and has not used it since. Another sleep study was ordered in December last year but because of the COVID-19 pandemic, it was canceled. She is here to reschedule because she now has polycythemia. Subjective Initial [place] Sleepiness Scale score: 16 (in 2018) Current [place] Sleepiness Scale score: 10 Allergies and Home Medications Drug allergies reviewed: Yes Home medication list reviewed: Yes Physical Exam Height: 5 ft 3 in Weight: 222 lb Body Mass Index: 39.3 BMI Classification: Obese Impression and Plan IMPRESSION: 1. Obstructive Sleep Apnea-Hypopnea Syndrome, as previously diagnosed but untreated because her BiPAP broke last summer. We will need a new sleep study to restart the treatment on Medicare. Plan: 1. Schedule an in-laboratory polysomnography. 2. Avoid alcohol, sedative and muscle relaxant around bedtime. 3. Attempt to lose weight. 4. Return in 1 to 2 weeks after the study to discuss results and initiate therapy. Visit Type: In Office Time Spent with Patient (minutes): 15 Provider Statement: I spent 100% of the Face to Face Visit with the patient with greater than 50% spent counseling the patient and coordination of care.
== END 2019-11-20 14:14 | disposition home or self-care (01) ==
LOC: SC 14:13
PROVIDERS: ATTEND Internal Medicine Pulmonary Disease
DX: G47.33 Obstructive sleep apnea (adult) (pediatric) (principal); E66.9 Obesity, unspecified; Z68.39 Body mass index [BMI] 39.0-39.9, adult
CPT/HCPCS: 99213; G0463; 99212

== ENCOUNTER 2019-12-05 19:52 | Outpatient (CLI) | payer MEDICARE | END 2019-12-05 19:53 | disposition home or self-care (01) | LOC: SC 19:52 | PROVIDERS: ATTEND Internal Medicine Pulmonary Disease | DX: G47.33 Obstructive sleep apnea (adult) (pediatric) (principal); G47.61 Periodic limb movement disorder; I48.91 Unspecified atrial fibrillation | CPT/HCPCS: 95810 ==

== ENCOUNTER 2019-12-19 14:39 | Outpatient (CLI) | payer MEDICARE ==
--- NOTE | 2019-12-19 14:49 | SLEEP CARE CONSULTATION ---
Information from patient questionnaire entered by Melissa Kahn. I have reviewed and concur with the information entered by Melissa Kahn. This document represents the service I personally performed and the decisions made by me, Ruben Devlin MD, [facility]. History of Present Illness Service Date and Time: 12/19/2019 1439 Initial [place] Sleepiness Scale score: 16 (in 2019) Additional HPI information: To minimize the risk of COVID-19 exposure, the patient has requested and consented to this video telemedicine visit. The patient also agrees to having her insurance billed. HPI: Ms. Heredia was called for follow up of the sleep study she had on 12/05/2019. The polysomnography showed that the patient had normal sleep efficiency. The sleep architecture was abnormal for sleep fragmentation and reduced amount of time spent in REM and slow wave sleep (N3). Respiratory monitoring showed moderate obstructive sleep apnea-hypopnea (AHI = 15.6) associated with frequent arousals, oxyhemoglobin desaturation and severe hypoxia (chely oxygen saturation of 59%). Baseline oxygen saturation was normal. The respiratory events occurred independently of sleep stage and body position ( supine AHI = 10.5; non-supine = 17.82). Snore was moderate in intensity. There was severe periodic leg movement of sleep contributing to the sleep fragmentation. Cardiac rhythm was atrial fibrillation. No abnormal behavior (parasomnia) observed during the night. The patient was informed of these findings. I explained to her that she still has obstructive sleep apnea-hypopnea. The patient was originally diagnosed with the sleep-disordered breathing 20 years ago and has a BiPAP that she is not using. Sleep Study - Results Type of Sleep Study: Polysomnography Allergies and Home Medications Drug allergies reviewed: Yes Home medication list reviewed: Yes Physical Exam Height: 5 ft 3 in Impression and Plan IMPRESSION: 1. Obstructive Sleep Apnea-Hypopnea Syndrome, moderate, associated with moderate hypoxemia and severe fragmentation. Most likely, this is the cause of the patients symptoms of unrefreshed sleep, and excessive daytime sleepiness. As mentioned above, the patient will be restarted on a BiPAP set lower at 12/8 cmH2O. Depending on her response and compliance she may be brought back for an overnight CPAP titration study. PLAN: 1. Prescription made for a new BiPAP with heated humidifier and related supplies. 2. Attempt to lose weight. 3. Return for follow up after one month on the new machine. I spent 100% of the 12 minute phone call with the patient with greater than 50% of this spent counseling the patient and coordination of care. The patient was at home and the provider was in the office during this encounter. Visit Type: Telehealth Video Video Type: [employer] Patient Location: Home Location of Provider: Office Time Spent with Patient (minutes): 12 Provider Statement: I spent 100% of the Telehealth Video Call with the patient with greater than 50% spent counseling the patient and coordination of care.
== END 2019-12-19 14:40 | disposition home or self-care (01) ==
LOC: SC 14:39
PROVIDERS: ATTEND Internal Medicine Pulmonary Disease
DX: G47.33 Obstructive sleep apnea (adult) (pediatric) (principal)

== ENCOUNTER 2020-03-05 15:20 | Outpatient (CLI) | payer MEDICARE ==
--- NOTE | 2020-03-05 16:36 | SLEEP CARE CONSULTATION ---
Information from patient questionnaire entered by Melissa Kahn. I have reviewed and concur with the information entered by Melissa Kahn. This document represents the service I personally performed and the decisions made by me, Ruben Devlin MD, [facility]. History of Present Illness Service Date and Time: 03/05/2020 1520 Previous diagnosis: Moderate, Obstructive Sleep Apnea-Hypopnea Syndrome AHI: 15.6 (in 2019)(52 RDI in 2001) Reason for follow up: first compliance Equipment type: BiPAP Equipment obtained from: [facility] [facility] Prior sleep studies: Yes Year and Where: 2001 - [facility] [place], 2019 - [facility] HPI additional information: HPI: Ms. Heredia returns with her granddaughter today to follow up on the BiPAP therapy. She was diagnosed to have moderate obstructive sleep apnea-hypopnea syndrome. The patient wears with a full face mask. She reports using the device nightly and all through the night. The compliance data show usage in 29 out of the past 30 nights, averaging 7.4 hours a night. The > 4 hour compliance rate for the past 30 days is 70%. She complained of no particular problem with the device such as soreness on the face, dry nose, epistaxis, nasal congestion or headache. She thinks that the pressure of 12/8 cmH2O is too high. On the BiPAP therapy she notices improvement in her sleep quality, and that she wakes up feeling fresher in the morning and more awake/alert during the day. The [place] Sleepiness Scale score 9. The average residual AHI is 5.6; and air leak, 22.4 L/min. Sleep Study - Results Prior sleep studies: Yes Year and Where: 2001 - in [place] CPAP Compliance Data - Data Reviewed with Patient Average duration of nightly device use: 7.25 Compliance rate %: 70 Current pressure setting (cmH2O): 12/8 Average residual AHI: 5.6 Subjective Initial [place] Sleepiness Scale score: 16 (in 2019) Allergies and Home Medications Drug allergies reviewed: Yes Home medication list reviewed: Yes Review of Systems Review of systems same as previous: Yes Physical Exam Vital signs obtained and entered by: To minimize the risk of COVID-19 exposure, detailed exam was not performed. Height: 5 ft 3 in Weight: 250 lb Body Mass Index: 44.2 BMI Classification: Morbidly Obese Impression and Plan IMPRESSION: 1. Obstructive Sleep Apnea-Hypopnea Syndrome, moderate (AHI was 15.6), with the patient doing well on BiPAP therapy. She has good compliance and significant clinical improvement. The current pressure appears effective and comfortable. Overall, she is very satisfied with treatment and plans to continue with it long-term. Because she feels that the pressure is a little too high, I will lower the BiPAP setting to 10/6 cmH2O. Hopefully, this will also help reduce the air leak. PLAN: 1. Reduce BiPAP to 10/6 cmH2O. 2. Increase the heated humidifier setting as needed. Her granddaughter will help her with the adjustment. 3. Return in one month for follow up to recheck leak and residual AHI. The visit can be via [employer]. Visit Type: In Office Time Spent with Patient (minutes): 15 Provider Statement: I spent 100% of the Face to Face Visit with the patient with greater than 50% spent counseling the patient and coordination of care.
== END 2020-03-05 15:21 | disposition home or self-care (01) ==
LOC: SC 15:20
PROVIDERS: ATTEND Internal Medicine Pulmonary Disease
DX: G47.33 Obstructive sleep apnea (adult) (pediatric) (principal); E66.01 Morbid (severe) obesity due to excess calories; Z68.41 Body mass index [BMI] 40.0-44.9, adult
CPT/HCPCS: 99213; G0463; 99212